=== PATIENT | male | born 1955 | race Caucasian/White ===

== ENCOUNTER 2022-04-03 14:22 | Outpatient (CLI) | payer MEDICARE, BC, SELFPAY ==
--- OUTSIDE RECORDS SUMMARY | 2022-04-03 14:24 | XMS_ITS | Encounter Summary ---
:1955 Author Organization [facility] Address [address] [place] [address] Care Team Providers Name Role Phone Unavailable Primary Care Provider Unavailable Reason for Referral Outpatient (Routine) - Closed Specialty Diagnoses / Procedures Referred By Contact Refer red To Contact Dermatology Tony Nagy M.D . [facility] Region [address] [place] [phone] Referral ID Status Reason Start Date Expiration Date Visits Requ ested Visits Authorized [id number] Closed 01/01/2021 01/01/2022 1 1 Scheduling Instructions Skin cancer screening exam in 3 months a nd recheck dermatitis Reason for Visit Reason Comments Follow-up Outpatient (Routine) - Closed Specialty Diagnoses / Procedures Referred By Contact Refer red To Contact Dermatology Tony Nagy M.D . [address] [phone] Referral ID Status Reason Start Date Expiration Date Visits Requ ested Visits Authorized [id number] Closed 10/01/2020 10/01/2021 1 1 Encounter Details Date Type Department Care Team Description 01/01/2021 Office Visit Department of Tony Nagy, Dermatitis (Primary Dx); Dermatology in [place] Ker[place] [address] [phone] Social History Tobacco Use Types Packs/Day Years Used Date Smoking Tobacco: Former Cigarettes 0 Smokeless Tobacco: Never Comments: 1-2 cigarettes only periodical ly Sex Assigned at Date Recorded Not on file documented as of this encounter Progress Notes Tony Nagy M.D. - 01/01/2021 3:00 PM CDT SUBJECTIVE CHIEF COMPLAINT / REASON FOR VISIT Recheck nummular dermatitis HISTORY OF PRESENT ILLNESS Eran Conner is a pleasant 65 y.o. male who follows up for a recheck nummular dermatitis. The patient was last seen by me in Dermatology clinic on 10/01/20 and at that time a 5 mm punch biopsy was done of the rash and was submitted for 1/2 H&E and 1/2 DIF. Pathology report showed subacute dermatitis and DIF was negative. As per patient report he stated he has had a history of nummular dermatitis that was quite significant at one point in time but he over the last 2. years has been quite mild. ??Previous biopsy showed dermatitis and direct immunofluorescence was negative with no evidence for autoimmune blistering disease. ??He has always denied any new contactant with his skin or any new medications prior to the rash.? On his visit on 11/07/2019, we felt the patient's nummular dermatitis had improved as compared to where it was 2 years ago. ??With regards to treatment, I asked him to stop the betamethasone cream and use only for flares twice daily for 1 week at at time.??I refilled the mometasone ointment to be applied sparingly to involved areas on trunk and extremities once daily for 1-2 weeks, stop for 1-2 weeks, then resume for another week if needed. ??He was also encouraged to do moisturizing with Vanicream and also use Sarna as an anti pruritic nonsteroidal lotion. ??Given that he had improved I did not feel he needed a re-biopsy at that time or patch testing and he was in agreement with this as well. On his most recent visit I asked him to continue with mometasone ointment once daily for 2 weeks at a time. Stop for one week. Resume for another two weeks. For severe flares he may use betamethasone cream once daily for 1 week at a time. However he was notto use the betamethasone except for significant flares and he has not been using it. Additionally, photographs were taken today of the arms, legs, and back. Today he feels his dermatitis is markedly improved with some spots remaining on the lower legs. He is continuing using the mometasone ointment once daily for two weeks at a time. He states he hasn't used the mometasone ointment for about one week. MEDICAL HISTORY History of nummular dermatitis OBJECTIVE PHYSICAL EXAMINATION General: Awake, alert, in no acute distress, and with appropriate affect. Skin: I have examined the scalp, face, neck, chest, abdomen, back, bilateral upper extremities, and bilateral lower extremities. Examination of the lower legs reveals very mild dermatitis with some excoriations. Examination reveals eczematous papules involving the right posterior shoulder and to a lesser extentthe left posterior shoulder. The left extensor arm reveals some mild scaling and dry skin from recent trauma. Examination of the abdomen and flanks reveals a few resolving eczematous papules. Examination today reveals a total of 3 AKs, includin right religion, 1 right ear, 1 left ear antihelix. ASSESSMENT / PLAN #1 Nummular dermatitis, markedly improved I have asked him to continue applying mometasone ointment as spot treatments to involved areas once daily for 1-2 weeks at a time. I have asked him to try to stop the mometasone ointment for two weeks at a time instead of 1 week if possible to avoid thinning of the skin. For itching in the weeks between the mometasone ointment, I recommended he apply Sarna lotion to involved areas 1-2 times daily. For a flare follow up immediately otherwise follow up for a recheck of dermatitis and a full skin check in 2-3 months. #2 Right and left ear, right religion: AK x 3 Given the precancerous nature of this lesion(s), treatment is medically indicated. After discussion of the risks, benefits and alternatives to treatment with cryotherapy, informed consent was obtained.We treated a total of 3 lesion(s) with two 5-10-second freeze-thaw cycles of liquid nitrogen cryother apy. The patient tolerated the procedure well. Aftercare instructions were provided in written and verbal form to the patient. Should any of these lesions recur, the patient should return for biopsy orfurther evaluation. Discussed the risks, benefits, alternatives, and the necessity of other members of the healthcare team participating in the procedure. All questions answered and consent given. PATIENT EDUCATION: Ready to learn. No apparent learning barriers were identified. Learning preferences include listening. Explained diagnosis and treatment plan; patient/guardian of patient expressed understanding of thecontent. By signing my name below, I, Roxana Rosales, attest that this documentation has been prepared underthe direction and in the presence of Tony Nagy M.D. Electronically Signed: julia Reid. ITony M.D., personally performed the services described in this documentation. All medical record entries made by the scribe were at my direction and in my presence. I have reviewed the chart and discharge instructions (if applicable) and agree that the record reflects my personal performance and is accurate and complete. Tony Nagy M.D. documented in this encounter Plan of Treatment Scheduled Referrals Name Type Priority Associated Order Schedule Diagnoses Dermatology office Outpatient Referral Routine Ex pected: visit (clinic) 04/03/2021 (Approximate), Expires: 01/02/2024 documented as of this encounter Visit Diagnoses Diagnosis Dermatitis - Primary Keratosis [facility] documented in this encounter
--- OUTSIDE RECORDS SUMMARY | 2022-04-03 14:24 | XMS_ITS | Encounter Summary ---
:1955 Author Organization [facility] Address [address] [place] [address] Care Team Providers Name Role Phone Unavailable Primary Care Provider Unavailable Reason for Visit Reason Comments Dermatitis Appointment Request (Routine) - Closed Specialty Diagnoses / Procedures Referred By Contact Refer red To Contact Dermatology Referral ID Status Reason Start Date Expiration Date Visits Requ ested Visits Authorized [id number] Closed 08/12/2021 08/12/2022 1 1 Encounter Details Date Type Department Care Team Description 11/11/2021 Office Visit Department of Tony Nagy, Dermatitis (Primary Dermatology in [place] ) [place], [place] [address] [address] [phone] Social History Tobacco Use Types Packs/Day Years Used Date Smoking Tobacco: Former Cigarettes 0 Smokeless Tobacco: Never Comments: 1-2 cigarettes only periodical ly Sex Assigned at Date Recorded Not on file documented as of this encounter Progress Notes Tony Nagy M.D. - 11/11/2021 8:15 AM CDT SUBJECTIVE CHIEF COMPLAINT / REASON FOR VISIT Recheck nummular dermatitis HISTORY OF PRESENT ILLNESS Eran Conner is a pleasant 66 y.o. male who presents for a recheck of nummular dermatitis. The patient was last seen by me in Dermatology clinic on 05/13/21 for a full skin cancer screening. He denies a personal history of skin cancer. His sister has a recent history of melanoma. He uses sunscreen. He denies any new or changing lesions today. ?? Regarding the nummular dermatitis, the patient stated he had??a history of nummular dermatitis that was quite significant at one??point in time but had been mild the past few years. Previous biopsy showed dermatitis and direct immunofluorescence was negative with no evidence for auto-immune blistering disease. He had always denied any new skin contactant or any new medications prior to the rash.? During a previous visit on 11/07/19, we felt the nummular dermatitis had??improved as compared to where it was two years prior. Regarding treatment, I asked him to stop the betamethasone cream and use only for flares twice daily for one week at a time.??I??refilled the??mometasone ointment??to be applied??sparingly to involved areas on trunk and extremities once daily for 1-2??weeks, stop for 1-2 weeksand then resume for another week as needed. He was also encouraged to apply Vanicream moisturizer and Sarna anti-itch lotion.??Subsequently on 10/01/20, a 5- mm punch biopsy was performed which continuedto show subacute dermatitis with negative direct immunofluorescence. ?? During a previous visit on 01/01/21, the patient felt that the dermatitis continued to improve with only some spots remaining on the lower legs. I asked him to continue applying mometasone ointment as spot treatments to involved areas once daily for 1-2 weeks at a time. I asked him to try to stop the mo metasone ointment for two weeks??at a time instead of one week??if possible to avoid thinning of theskin. For itching during the weeks between the mometasone ointment, I recommended applying Sarna lotion??to involved areas 1-2 times daily. ?? During our last visit on 05/13/21, the patient stated the nummular dermatitis involving the back had been stable. He reports having intermittent dermatitis involving the arms, back, abdomen and flanks. When active, he does use mometasone ointment once daily for about three days at a time. ??I asked himto continue applying mometasone ointment as spot treatments to involved areas once daily for one week at a time. For itching, I recommended applying Sarna lotion to involved areas 1-2 times daily. Today the patient states that there is a persistent spot of dermatitis on both calves, and occassoinal spots on the elbow or back. He reports using the mometasone ointment twice daily for the first daywhen flaring, and then applies once daily for 3-5 days and stops. MEDICAL HISTORY Negative for skin cancer FAMILY HISTORY Melanoma in sister Basal cell carcinoma in mother OBJECTIVE PHYSICAL EXAMINATION General: Awake, alert, in no acute distress, and with appropriate affect. Skin: Limited skin exam done today. Examination of trunk and extremities and face done in clinic today. Examination of the left upper arm reveals 2-3 resolving excoriated papules. Examination of the thighs reveals a few excoriated papules. Examination of the left calf reveals a small nummular plaque. There is a slightly smaller patch involving the right calf. Examination today reveals no suspicious lesions for skin cancer. ASSESSMENT / PLAN #1 Trunk and extremities: Nummular and nonspecific dermatitis, improved I asked him to continue applying mometasone ointment as spot treatments to involved areas once dailyfor one week at a time. We discussed potential side effects of topical steroid overuse which includethinning of the skin. For itching, I recommend applying Sarna lotion to involved areas 1-2 times daily. He can also use Vanicream twice daily for moisturizing. Follow up in 6 months for a recheck of the nummular dermatitis as well as a full skin cancer screening. PATIENT EDUCATION: Ready to learn. No apparent learning barriers were identified. Learning preferences include listening. Explained diagnosis and treatment plan; patient/guardian of patient expressed understanding of thecontent. By signing my name below, I, Vonda Mills, attest that this documentation has been prepared under the direction and in the presence of Tony Nagy M.D. Electronically Signed: julia Velasquez. 11/11/2021. 8:13 AM CDT. I, Tony Nagy M.D., personally performed the services described in this documentation. All medical record entries made by the scribe were at my direction and in my presence. I have reviewed the chart and discharge instructions (if applicable) and agree that the record reflects my personal performance and is accurate and complete. Tony Nagy M.D. documented in this encounter Plan of Treatment Not on filedocumented as of this encounter Visit Diagnoses Diagnosis Dermatitis - Primary documented in this encounter
--- OUTSIDE RECORDS SUMMARY | 2022-04-03 14:24 | XMS_ITS | Encounter Summary ---
:1955 Author Organization [facility] Address [address] [place] [address] Care Team Providers Name Role Phone Unavailable Primary Care Provider Unavailable Reason for Visit Reason Comments Med Refill Encounter Details Date Type Department Care Team Description 07/06/2020 Refill Department of Dermatology in [place] M.D. Med [facility] [address] [address] [place], [place] [address] [phone] Social History Tobacco Use Types Packs/Day Years Used Date Smoking Tobacco: Former Cigarettes 0 Smokeless Tobacco: Never Comments: 1-2 cigarettes only periodical ly Sex Assigned at Date Recorded Not on file documented as of this encounter Plan of Treatment Not on filedocumented as of this encounter Visit Diagnoses Not on filedocumented in this encounter
--- OUTSIDE RECORDS SUMMARY | 2022-04-03 14:24 | XMS_ITS | Encounter Summary ---
:1955 Author Organization [facility] Address [address] [place] [address] Care Team Providers Name Role Phone Unavailable Primary Care Provider Unavailable Reason for Visit Reason Comments Follow-up Appointment Request (Routine) - Closed Specialty Diagnoses / Procedures Referred By Contact Refer red To Contact Family Medicine Referral ID Status Reason Start Date Expiration Date Visits Requ ested Visits Authorized [id number] Closed 07/08/2019 07/07/2020 1 1 Encounter Details Date Type Department Care Team Description 11/07/2019 Office Visit Department of Tony Nagy, Dermatitis (Primary Dermatology in [place] ) [place], [place] [address] [phone] [phone] Social History Tobacco Use Types Packs/Day Years Used Date Smoking Tobacco: Former Cigarettes 0 Smokeless Tobacco: Never Comments: 1-2 cigarettes only periodical ly Sex Assigned at Date Recorded Not on file documented as of this encounter Progress Notes Tony Nagy M.D. - 11/07/2019 12:45 PM CDT SUBJECTIVE CHIEF COMPLAINT / REASON FOR VISIT Recheck dermatitis HISTORY OF PRESENT ILLNESS Eran Conner is a pleasant 64 y.o. male who follows up for a recheck of his dermatitis. He was last seen by me in Dermatology Clinic on April 13, 2018. He has a history of nummular dermatitis thatwas quite significant at 1 point in time but he states that over the last 2 years has been quite mild. Previous biopsy showed dermatitis and direct immunofluorescence was negative with no evidence for autoimmune blistering disease. He has always denied any new contactant with his skin or any new medications prior to the rash. We had previously treated him with betamethasone cream twice daily for 1-2 weeks for flares only but otherwise use mometasone ointment once daily for 1-2 weeks at a time and then stop for least 2 weeks for maintenance. He states that he ran out of the mometasone and has been using the clobetasol for any new lesions for few days at a time only. He also uses Sarna lotion twice daily as needed. He has not needed the Benadryl. MEDICAL HISTORY History of nummular dermatitis OBJECTIVE PHYSICAL EXAMINATION General: Awake, alert, in no acute distress, and with appropriate affect. Skin: Examination of his face trunk and extremities was done in clinic today. Examination of his back reveals annular eczematous plaques compatible with his nummular dermatitis. He has a few excoriations involving his arms and legs. He also has some few nummular lesions involving his abdomen. There are no vesicles blisters or pustules. No mucosal involvement. ASSESSMENT / PLAN #1 Trunk greater than extremities: Nummular dermatitis, overall improved The patient's nummular dermatitis has improved as compared to where it was 2 years ago. With regardsto treatment, I have asked him to stop the betamethasone cream. I will refill mometasone ointment which she can apply sparingly to involved areas on trunk and extremities once daily for 1 week, stop for 1-2 weeks, then resume for another week if needed. He was also encouraged to do moisturizing with Vanicream and also use Sarna as an anti pruritic nonsteroidal lotion. Potential side effects with overuse of topical steroids discussed and he understands. Given that he has improved I do not feel he needs a re-biopsy at this time or patch testing and he prefers not to do both either. He will follow up immediately if there is any worsening. Otherwise follow up as needed. All questions answered. PATIENT EDUCATION: Ready to learn. No apparent learning barriers were identified. Learning preferences include listening. Explained diagnosis and treatment plan; patient/guardian of patient expressed understanding of thecontent. documented in this encounter Plan of Treatment Not on filedocumented as of this encounter Visit Diagnoses Diagnosis Dermatitis - Primary documented in this encounter
--- OUTSIDE RECORDS SUMMARY | 2022-04-03 14:24 | XMS_ITS | Encounter Summary ---
:1955 Author Organization [facility] Address [address] [place] [address] Care Team Providers Name Role Phone Unavailable Primary Care Provider Unavailable Encounter Details Date Type Department Care Team Description 10/01/2020 Ancillary Procedure Department of Dermatology Social History Tobacco Use Types Packs/Day Years Used Date Smoking Tobacco: Former Cigarettes 0 Smokeless Tobacco: Never Comments: 1-2 cigarettes only periodical ly Sex Assigned at Date Recorded Not on file documented as of this encounter Plan of Treatment Not on filedocumented as of this encounter Procedures Procedure Name Priority Date/Time Associated Comments Diagnosis DERMATOLOGY IMAGE Routine 10/01/2020 8:55 AM Resu lts for this EXAM CDT procedure are i n the results section. documented in this encounter Results Generalized 500-Dermatology Image Exam (10/01/2020 8:55 AM CDT) Specimen (Source) Anatomical Collection Method Collection Time Re ceived Time Location / / Volume Laterality 10/01/2020 8:53 AM CDT Narrative [facility] - 10/01/2020 8:56 AM CDT This order has been created and auto-finalized to support the import of images acquired without order. The clini trace documentation to support these images can be found on the encounter sharif t produced images. Provider Not In System IMG NON RAD IMAGING PROCEDUR ES Performing Organization Address City/State/ZIP Code Phon e Number [facility] NA documented in this encounter Visit Diagnoses Not on filedocumented in this encounter
--- OUTSIDE RECORDS SUMMARY | 2022-04-03 14:24 | XMS_ITS | Encounter Summary ---
:1955 Author Organization [facility] Address [address] [place] [address] Care Team Providers Name Role Phone Unavailable Primary Care Provider Unavailable Encounter Details Date Type Department Care Team Description 05/13/2021 Orders Only RST PCP [facility] Jessy Blanton M.D. [address] [place], [place] [phone] (Wo rk) Social History Tobacco Use Types Packs/Day Years Used Date Smoking Tobacco: Former Cigarettes 0 Smokeless Tobacco: Never Comments: 1-2 cigarettes only periodical ly Sex Assigned at Date Recorded Not on file documented as of this encounter Plan of Treatment Not on filedocumented as of this encounter Visit Diagnoses Not on filedocumented in this encounter
--- OUTSIDE RECORDS SUMMARY | 2022-04-03 14:24 | XMS_ITS | Encounter Summary ---
:1955 Author Organization [facility] Address [address] [place] [address] Care Team Providers Name Role Phone Unavailable Primary Care Provider Unavailable Reason for Visit Reason Comments Med Refill Encounter Details Date Type Department Care Team Description 05/27/2019 Refill Department of Dermatology in [place] M.D. Med Refill [facility] [address] [address] [place], [place] [phone] Social History Tobacco Use Types Packs/Day Years Used Date Smoking Tobacco: Former Cigarettes 0 Smokeless Tobacco: Never Comments: 1-2 cigarettes only periodical ly Sex Assigned at Date Recorded Not on file documented as of this encounter Miscellaneous Notes Telephone Encounter - Kavitha Tinoco L.PSamirN. - 05/30/2019 4:44 PM CST Patient was notified that the prescription was renewed with no refills as he is overdue for a visit.Patient expressed understanding and will call to schedule a follow up with Dr. Nagy. ANCE EDUCATION COORDINATOR documented in this encounter Plan of Treatment Not on filedocumented as of this encounter Visit Diagnoses Not on filedocumented in this encounter
--- OUTSIDE RECORDS SUMMARY | 2022-04-03 14:24 | XMS_ITS | Encounter Summary ---
:1955 Author Organization [facility] Address [address] [place] [address] Care Team Providers Name Role Phone Unavailable Primary Care Provider Unavailable Reason for Visit Reason Comments Med Refill Encounter Details Date Type Department Care Team Description 07/16/2018 Refill Department of Dermatology in [place] M.D. Med Refill [facility] [place] [address] [place] [phone] [place], [place] [address] [phone] Social History Tobacco Use Types Packs/Day Years Used Date Smoking Tobacco: Former Cigarettes 0 Smokeless Tobacco: Never Comments: 1-2 cigarettes only periodical ly Sex Assigned at Date Recorded Not on file documented as of this encounter Plan of Treatment Not on filedocumented as of this encounter Visit Diagnoses Not on filedocumented in this encounter
--- OUTSIDE RECORDS SUMMARY | 2022-04-03 14:24 | XMS_ITS | Encounter Summary ---
:1955 Author Organization [facility] Address [address] [place] [address] Care Team Providers Name Role Phone Unavailable Primary Care Provider Unavailable Reason for Visit Reason Comments Med Refill Encounter Details Date Type Department Care Team Description 04/25/2020 Refill Department of Dermatology in [place] M.D. Med Refill [facility] [address] [place] [phone] [place], [place] [address] [phone] Social History Tobacco Use Types Packs/Day Years Used Date Smoking Tobacco: Former Cigarettes 0 Smokeless Tobacco: Never Comments: 1-2 cigarettes only periodical ly Sex Assigned at Date Recorded Not on file documented as of this encounter Plan of Treatment Not on filedocumented as of this encounter Visit Diagnoses Not on filedocumented in this encounter
--- OUTSIDE RECORDS SUMMARY | 2022-04-03 14:24 | XMS_ITS | Encounter Summary ---
:1955 Author Organization [facility] Address [address] [place] [address] Care Team Providers Name Role Phone Unavailable Primary Care Provider Unavailable Encounter Details Date Type Department Care Team Description 05/17/2021 Orders Only RST PCP [facility] Jessy Blanton M.D. [address] [place], [place] [phone] (Wo rk) Social History [...]
--- OUTSIDE RECORDS SUMMARY | 2022-04-03 14:24 | XMS_ITS | Encounter Summary ---
:1955 Author Organization [facility] Address [address] [place] [address] Care Team Providers Name Role Phone Unavailable Primary Care Provider Unavailable Reason for Visit Reason Comments Med Refill Encounter Details Date Type Department Care Team Description 04/18/2018 Refill Department of Family Medicine, Tony Veronica M.D. Med Refill [facility], [place] [address] [place] [address] [place], [place] [address] [phone] Social History Tobacco Use Types Packs/Day Years Used Date Smoking Tobacco: Former Cigarettes 0 Smokeless Tobacco: Never Comments: 1-2 cigarettes only periodical ly Sex Assigned at Date Recorded Not on file documented as of this encounter Plan of Treatment Not on filedocumented as of this encounter Visit Diagnoses Not on filedocumented in this encounter
--- OUTSIDE RECORDS SUMMARY | 2022-04-03 14:24 | XMS_ITS | Encounter Summary ---
:1955 Author Organization [facility] Address [address] [place] [address] Care Team Providers Name Role Phone Unavailable Primary Care Provider Unavailable Reason for Referral Specialty Diagnoses / Procedures Referred By Contact Refer red To Contact Jessy Chacko M.D. [facility] [address] [place] [phone] Referral ID Status Reason Start Date Expiration Date Visits Requ ested Visits Authorized ECTION SUPERVISOR Encounter Details Date Type Department Care Team Description 05/13/2021 Orders Only RST PCP [facility] Jessy Chacko M.D. [address] [place] [phone] (Wo rk) Social History Tobacco Use Types Packs/Day Years Used Date Smoking Tobacco: Former Cigarettes 0 Smokeless Tobacco: Never Comments: 1-2 cigarettes only periodical ly Sex Assigned at Date Recorded Not on file documented as of this encounter Plan of Treatment Scheduled Referrals Name Type Priority Associated Order Schedule Diagnoses Covid immunization Outpatient Referral Routine Ex pected: office visit Booster 021 (Approximate), Expires: 05/13/2022 documented as of this encounter Visit Diagnoses Not on filedocumented in this encounter
--- OUTSIDE RECORDS SUMMARY | 2022-04-03 14:24 | XMS_ITS | Encounter Summary ---
:1955 Author Organization [facility] Address [address] [place] [address] Care Team Providers Name Role Phone Unavailable Primary Care Provider Unavailable Reason for Visit Reason Comments Med Refill Encounter Details Date Type Department Care Team Description 06/12/2019 Refill Department of Family Medicine, Tony Veronica M.D. Med Refill [facility], [place] [address] [place], [place] [address] [phone] Social History Tobacco Use Types Packs/Day Years Used Date Smoking Tobacco: Former Cigarettes 0 Smokeless Tobacco: Never Comments: 1-2 cigarettes only periodical ly Sex Assigned at Date Recorded Not on file documented as of this encounter Miscellaneous Notes Telephone Encounter - Tony Nagy M.D. - 06/13/2019 12:32 PM CST I have not prescribed this medication previously, and the patient has not been seen in over one year. He needs to make a follow-up appointment. Thank you. PULLER documented in this encounter Plan of Treatment Not on filedocumented as of this encounter Visit Diagnoses Not on filedocumented in this encounter
--- OUTSIDE RECORDS SUMMARY | 2022-04-03 14:24 | XMS_ITS | Encounter Summary ---
:1955 Author Organization [facility] Address [address] [place] [address] Care Team Providers Name Role Phone Unavailable Primary Care Provider Unavailable Reason for Visit Reason Comments Med Refill Encounter Details Date Type Department Care Team Description 12/16/2021 Refill Department of Dermatology in Tony Bradshaw M.D. Med Refill [facility] [address] [address] [place], [place] [address] [phone] Social History Tobacco Use Types Packs/Day Years Used Date Smoking Tobacco: Former Cigarettes 0 Smokeless Tobacco: Never Comments: 1-2 cigarettes only periodical ly Sex Assigned at Date Recorded Not on file documented as of this encounter Plan of Treatment Not on filedocumented as of this encounter Visit Diagnoses Not on filedocumented in this encounter
--- OUTSIDE RECORDS SUMMARY | 2022-04-03 14:24 | XMS_ITS | Encounter Summary ---
:1955 Author Organization [facility] Address [address] [place] [address] Care Team Providers Name Role Phone Unavailable Primary Care Provider Unavailable Reason for Referral Outpatient (Routine) - Closed Specialty Diagnoses / Procedures Referred By Contact Refer red To Contact Dermatology Tony Nagy M.D . [facility] [address] [place] [phone] Referral ID Status Reason Start Date Expiration Date Visits Requ ested Visits Authorized [id number] Closed 10/01/2020 10/01/2021 1 1 Scheduling Instructions Recheck rash in 2-3 months. 30 minutes Reason for Visit Reason Comments Rash Appointment Request (Routine) - Closed Specialty Diagnoses / Procedures Referred By Contact Refer red To Contact Dermatology Referral ID Status Reason Start Date Expiration Date Visits Requ ested Visits Authorized [id number] Closed 08/13/2020 08/13/2021 1 1 Encounter Details Date Type Department Care Team Description 10/01/2020 Office Visit Department of Tony Nagy, Tumor Skin Uncertain Behavior (Primary Dx); Dermatology in [place]; [place], [place] [address] [facility] Dermatitis [address] [place] [phone] Social History Tobacco Use Types Packs/Day Years Used Date Smoking Tobacco: Former Cigarettes 0 Smokeless Tobacco: Never Comments: 1-2 cigarettes only periodical ly Sex Assigned at Date Recorded Not on file documented as of this encounter Progress Notes Tony Nagy M.D. - 10/01/2020 8:30 AM CDT SUBJECTIVE CHIEF COMPLAINT / REASON FOR VISIT Recheck nummular dermatitis HISTORY OF PRESENT ILLNESS Eran Conner is a pleasant 65 y.o. male who follows up for a recheck of nummular dermatitis. Thepatient was last seen by me in Dermatology clinic on 11/07/2019 and at that time we felt the dermatitis was overall improved and involved his trunk to a greater extent than the extremities. As per patient report he stated he has had a history of nummular dermatitis that was quite significant at one point in time but he over the last 2. years has been quite mild. Previous biopsy showed dermatitis and direct immunofluorescence was negative with no evidence for autoimmune blistering disease. He has always denied any new contactant with his skin or any new medications prior to the rash. On his most recent visit on 11/07/2019, we felt the patient's nummular dermatitis had improved as compared to where it was 2 years ago. With regards to treatment, I asked him to stop the betamethasone cream and use only for flares twice daily for 1 week at at time. I refilled the mometasone ointment to be applied sparingly to involved areas on trunk and extremities once daily for 1-2 weeks, stop for 1-2 weeks, then resume for another week if needed. He was also encouraged to do moisturizing with Vanicream and also use Sarna as an anti pruritic nonsteroidal lotion. Given that he had improved I did not feel he needed a re-biopsy at that time or patch testing and he was in agreement with this as well. Today he states since his previous visit it was well controlled but recently the rash has changed and there are now smaller pin point areas that area extremely itchy and involve the extremities and he is applying mometasone ointment once daily for 2 weeks with improvement but on his week off he has severe itching and the dermatitis worsens. He denies any blisters or new skin contactants. He denies a history of gluten sensitivity. MEDICAL HISTORY History of nummular dermatitis OBJECTIVE PHYSICAL EXAMINATION General: Awake, alert, in no acute distress, and with appropriate affect. Skin: I have examined the scalp, face, neck, chest, abdomen, back, bilateral upper extremities, and bilateral lower extremities. Examination today reveals small erythematous excoriated papules involving the arms bilaterally with some excoriations on the hands and fingers. Web spaces are normal. He does have some non plapable purpura and bruising on the arms. Examination of the thighs and legs reveals some excoriated papules. Examination of lower back and posterior thighs reveals some eczematous excoriated papules and small plaques. ASSESSMENT / PLAN #1 Extremities and lower back: Non specific dermatitis, rule out DH A 5 mm punch biopsy of the rash was done in clinic from the left posterior upper arm and submitted for pathology /2 H& E and / DIF. I will correspond with patient as to the results and if any further treatment is needed.Continue with mometasone ointment once daily for 2 weeks at a time. Stop for one week. Resume for another two weeks. For severe flares he may use betamethasone cream once daily for 1 week at a time. Additionally, photographs were taken today of the arms, legs, and back. CONSENT Discussed the risks, benefits, alternatives, and the necessity of other members of the healthcare team participating in the procedure. All questions answered and consent given. UNIVERSAL PROTOCOL Procedural pause conducted to verify: correct patient identity, procedure to be performed, and as applicable, correct side and site, correct patient position, and availability of implants, special equipment, or special requirements. PROCEDURE INFORMATION Punch biopsy /2 H&E and 2 DIF We explained the potential diagnosis and recommended that we obtain a biopsy. The risks and benefitsof the procedure were discussed, and the patient consented to these procedures. Using 1% lidocaine with epinephrine for local anesthesia, a 5 mm punch biopsy was obtained from the left posterior upper arm. Biopsy submitted to Dermatopathology 2 H&E and / DIF. Biopsy site closed with a top layer 2,4-0 nylon superficial sutures. The skin sutures need to be removed in 10-14 days. Dressing was applied, and wound care instructions were explained. Biopsy results and any further recommendations will be communicated to the patient by letter. Patient given pamphlet [id number]. PATIENT EDUCATION: Ready to learn. No apparent learning barriers were identified. Learning preferences include listening. Explained diagnosis and treatment plan; patient/guardian of patient expressed understanding of thecontent. By signing my name below, I, Roxana Rosales, attest that this documentation has been prepared underthe direction and in the presence of Tony Nagy M.D. Electronically Signed: julia Reid. 10/01/2020 I, Tony Nagy M.D., personally performed the services described in this documentation. All medical record entries made by the scribe were at my direction and in my presence. I have reviewed the chart and discharge instructions (if applicable) and agree that the record reflects my personal performance and is accurate and complete. Tony Nagy M.D. 10/01/2020 documented in this encounter Plan of Treatment Scheduled Referrals Name Type Priority Associated Order Schedule Diagnoses Dermatology office Outpatient Referral Routine Ex pected: visit (clinic) 01/01/2021 (Approximate), Expires: 10/02/2023 documented as of this encounter Procedures Procedure Name Priority Date/Time Associated Comments Diagnosis CUTANEOUS DIRECT IFA, Routine 10/01/2020 9:56 Rash Res ults for this BIOPSY AM CDT procedure are i n the results section. DERMATOPATHOLOGY CONSULT Routine 10/01/2020 9:01 Rash Results for this AM CDT procedure are i n the results section. documented in this encounter Results Cutaneous Direct IFA, Biopsy (10/01/2020 9:56 AM CDT) Component Value Ref Test Analysis Performed Pathologis t Range Method Time At Signature 10/05/2020 PDRM 11:34 AM CDT Report Tony Nagy, 10/05/2020 PDRNick galaviz M.D. 11:34 AM signed by CDT Interpretation A. ??Left posterior upper arm, Skin punch biopsy, 10/05/2020 PDRM Immunofluorescence: 11:34 AM IgG: ??Negative CDT IgM: ??Negative IgA: ?? Negative C3: ?Discontinuous weak granular basement membrane zone Fibrinogen: ??Patchy staining of connective tissue fibers IMPRESSION Negative study for a specific dermatosis (see comment) COMMENT These direct immunofluorescence findings are non-diagnostic and there is no specific evidence for immunobullous disease, lupus erythematosus, or a lichenoid tissue reaction. ??A final definitive diagnosis should be based on correlation of the direct immunofluorescence findings with the clinical presentation, histopathological findings on examination of sections from formalin-fixed, paraffin-embedded tissue and other diagnostic tests. Comment: ----ADDITIONAL INFORMATION---- This test was developed using an analyte specific reagent. Its performance characteristics were determined by [facility] in a manner consistent with CLIA requirements. This test has not bee n cleared or approved by the U.S. Food and Drug Administration. Specimen Anatomical Collection Method Collection Time Receive d Time (Source) Location / / Volume Laterality Varies 10/01/2020 9:56 AM CDT 12:45 PM CDT Narrative This result has an attachment that is no t available. Tony Nagy M.D. LAB PATH DERM ORDERABLES Performing Organization Address City/State/[facility] Code Phon e Number [facility] - [address] [place] [phone] [place] [address] [facility] 200 [facility] Dermatopathology Consult (10/01/2020 9:01 AM CDT) Component Value Ref Test Analysis Performed Pathologis t Range Method Time At Signature 10/05/2020 [facility] 2:35 PM CDT Report Joey Perez, 10/05/2020 [facility] electronically M.D. 2:35 PM signed by CDT Gross Received in formalin labeled with the patient's name, 10/05/2020 [facility] Description: medical record number, and left posterior upper arm is a 2:35 PM 0.5 x 0.2 cm pale ríos portion of skin punch biopsy CDT (half-punch), excised to a depth of 0.3 cm. No discrete lesion is grossly identified on the skin surface. The specimen is submitted en toto in cassette A1. ?? Grossed by AV. Interpetation FINAL DIAGNOSIS 10/05/2020 PDRM A. ??DermPath Consult Wet Tissue; Left posterior upper arm, 2:35 PM Skin punch biopsy: ??Subacute dermatitis with serum crust CDT COMMENT GMS stain is negative for fungal microorganisms. ??Direct immunofluorescence [id number]) is negative. Specimen Anatomical Collection Method Collection Time Receive d Time (Source) Location / / Volume Laterality Tissue 10/01/2020 9:01 AM 9:57 CDT AM CDT Narrative This result has an attachment that is no t available. Tony Nagy M.D. LAB PATH DERM ORDERABLES Performing Organization Address City/State/ZIP Code Phon e Number [facility] - [address] [place], [place] [address] [place] [address] [facility] [address] documented in this encounter Visit Diagnoses Diagnosis Tumor Skin Uncertain Behavior - Primary Rash Dermatitis documented in this encounter
--- OUTSIDE RECORDS SUMMARY | 2022-04-03 14:24 | XMS_ITS | Encounter Summary ---
:1955 Author Organization [facility] Address [address] [place] [address] Care Team Providers Name Role Phone Unavailable Primary Care Provider Unavailable Reason for Visit Reason Comments Med Refill Encounter Details Date Type Department Care Team Description 06/13/2018 Refill Department of Family Medicine, Tony Veronica M.D. Med Refill [facility], [place] [address] [place] [address] [place], [place] [address] [phone] Social History Tobacco Use Types Packs/Day Years Used Date Smoking Tobacco: Former Cigarettes 0 Smokeless Tobacco: Never Comments: 1-2 cigarettes only periodical ly Sex Assigned at Date Recorded Not on file documented as of this encounter Plan of Treatment Not on filedocumented as of this encounter Visit Diagnoses Not on filedocumented in this encounter
--- OUTSIDE RECORDS SUMMARY | 2022-04-03 14:24 | XMS_ITS | Encounter Summary ---
:1955 Author Organization [facility] Address [address] [place] [address] Care Team Providers Name Role Phone Unavailable Primary Care Provider Unavailable Reason for Visit Reason Comments Skin Check Follow-up Outpatient (Routine) - Closed Specialty Diagnoses / Procedures Referred By Contact Refer red To Contact Dermatology Tony Nagy M.D . [facility] Region [address] [place] [phone] Referral ID Status Reason Start Date Expiration Date Visits Requ ested Visits Authorized [id number] Closed 01/01/2021 01/01/2022 1 1 Encounter Details Date Type Department Care Team Description 05/13/2021 Office Visit Department of Tony Nagy, Keratosis Actinic (Primary Dx); Dermatology in [place] [facility]; [address] Dermatitis [address] [place] [phone] Social History Tobacco Use Types Packs/Day Years Used Date Smoking Tobacco: Former Cigarettes 0 Smokeless Tobacco: Never Comments: 1-2 cigarettes only periodical ly Sex Assigned at Date Recorded Not on file documented as of this encounter Progress Notes Tony Nagy M.D. - 05/13/2021 1:45 PM CST SUBJECTIVE CHIEF COMPLAINT / REASON FOR VISIT 1. Full skin cancer screening 2. Recheck nummular dermatitis HISTORY OF PRESENT ILLNESS Eran Conner is a pleasant 66 y.o. male who presents for a full skin cancer screening. The patient was last seen by me in Dermatology clinic on 01/01/21. He denies a personal history of skin cancer or family history for melanoma. He uses sunscreen. He denies any new or changing lesions today. Regarding the nummular dermatitis, the patient stated he had??a history of nummular dermatitis that was quite significant at one??point in time but had been mild the past few years. Previous biopsy showed dermatitis and direct immunofluorescence was negative with no evidence for auto-immune blistering disease. He had always denied any new skin contactant or any new medications prior to the rash.?? During a previous visit on 11/07/19, we [...] show subacute dermatitis with negative direct immunofluorescence. During our last visit on 01/01/21, the patient felt that the dermatitis continued to improve with only some spots remaining on the lower legs. I asked him to continue applying mometasone ointment as spot treatments to involved areas once daily for 1-2 weeks at a time. I asked him to try to stop the mometasone ointment for two weeks at a time instead of one week if possible to avoid thinning of the skin. For itching during the weeks between the mometasone ointment, I recommended applying Sarna lotion to involved areas 1-2 times daily. Today the patient states the nummular dermatitis involving the back has been stable. He reports having intermittent dermatitis involving the arms, back, abdomen and flanks. The rash is much worse during the winter compared to summer. He can go several weeks during the summer without any dermatitis. When active, he does use mometasone ointment once daily for about three days at a time. MEDICAL HISTORY Negative for skin cancer FAMILY HISTORY Negative for melanoma OBJECTIVE PHYSICAL EXAMINATION General: Awake, alert, in no acute distress, and with appropriate affect. Eyes: No scleral injection or icterus. No eyelid abnormalities. Lymph: No lower extremity edema. Skin: I have examined the scalp, face, neck, chest, abdomen, back, bilateral upper extremities, and bilateral lower extremities. Examination today reveals actinic keratoses, including 6 right cheek, 1 right ear antihelix, 2 left cheek, 1 left ear helix and 1 right dorsal hand. Examination of the face, trunk and extremities reveals multiple benign-appearing nevi, lentigines and seborrheic keratoses. Examination of the right upper back (shoulder) reveals a few dermatitic papules, less involving the shoulder. There is no active dermatitis involving the legs. There are some scattered papules involving the left upper back or mid-back. There are no vesicles or pustules. There is some dermatitis involving the right triceps. Examination today reveals no suspicious lesions for skin cancer. ASSESSMENT / PLAN #1 Face and right hand: Actinic keratosis x 11 Given the precancerous nature of this lesion(s), treatment is medically indicated. After discussion of the risks, benefits and alternatives to treatment with cryotherapy, informed consent was obtained.We treated a total of 11 lesion(s) with two 10-second freeze-thaw cycles of liquid nitrogen cryotherapy. The patient tolerated the procedure well. Aftercare instructions were provided in written and verbal form to the patient. Should any of these lesions recur, the patient should return for biopsy or further evaluation. Follow up in 1-2 months for recheck if these areas do not complete resolve. #2 Face, trunk and extremities: Multiple nevi and lentigines The ABCDE criteria for melanoma was reviewed with the patient. None of the patient's nevi reach the clinical threshold for biopsy. I recommend continued sun protection, self-skin examinations, and observation. Should any of the patient's nevi change in size, color, texture, or shape or develop symptoms such as itching or bleeding, I recommend an immediate return visit for reassessment. #3 Face, trunk and extremities: Seborrheic keratosis The benign nature of the skin lesion(s) was discussed with the patient. No treatment is required. I recommend continued observation. Should this lesion change in size, color, texture, or shape or develop symptoms such as itching or bleeding, I recommend an immediate return visit for reassessment. #4 Trunk and extremities: Nummular dermatitis, stable I asked him to continue applying mometasone [...] months for a recheck of the nummular dermatitis. PATIENT EDUCATION: Ready to learn. No apparent learning barriers were identified. Learning preferences include listening. Explained diagnosis and treatment plan; patient/guardian of patient expressed understanding of thecontent. By signing my name below, I, Jeff Becker, attest that this documentation has been prepared under thedirection and in the presence of Tony Nagy M.D. Electronically Signed: julia Linda. 05/13/2021. 2:17 PM AIR CARGO GROUND OPERATIONS SUPERVISOR. I, Tony Nagy M.D., personally performed the services described in this documentation. All medical record entries made by the scribe were at my direction and in my presence. I have reviewed the chart and discharge instructions (if applicable) and agree that the record reflects my personal performance and is accurate and complete. Tony Nagy M.D. CARGO GR[employer] OPERATIONS SUPERVISOR documented in this encounter Plan of Treatment Not on filedocumented as of this encounter Visit Diagnoses Diagnosis Keratosis Actinic - Primary [place] Multiple Dermatitis documented in this encounter
--- OUTSIDE RECORDS SUMMARY | 2022-04-03 14:24 | XMS_ITS | Encounter Summary ---
:1955 Author Organization [facility] Address [address] [place] [address] Care Team Providers Name Role Phone Unavailable Primary Care Provider Unavailable Encounter Details Date Type Department Care Team Description 09/12/2020 Orders Only [facility] PCP [facility] Sa patricia Blanton M.D. [address] [place], [place] [phone] (Wo rk) Social History [...]
--- OUTSIDE RECORDS SUMMARY | 2022-04-03 14:24 | XMS_ITS | Encounter Summary ---
:1955 Author Organization [facility] Address [address] [place] [address] Care Team Providers Name Role Phone Unavailable Primary Care Provider Unavailable Reason for Visit Reason Comments Med Refill Encounter Details Date Type Department Care Team Description 08/24/2018 Refill Department of Dermatology in Tony Bradshaw M.D. Med Refill [facility] [address] [place] [address] [place], [place] [address] [phone] Social History Tobacco Use Types Packs/Day Years Used Date Smoking Tobacco: Former Cigarettes 0 Smokeless Tobacco: Never Comments: 1-2 cigarettes only periodical ly Sex Assigned at Date Recorded Not on file documented as of this encounter Plan of Treatment Not on filedocumented as of this encounter Visit Diagnoses Not on filedocumented in this encounter
--- OUTSIDE RECORDS SUMMARY | 2022-04-03 14:24 | XMS_ITS | Encounter Summary ---
:1955 Author Organization [facility] Address [address] [place] [address] Care Team Providers Name Role Phone Unavailable Primary Care Provider Unavailable Reason for Visit Reason Comments Med Refill Encounter Details Date Type Department Care Team Description 09/04/2021 Refill Department of Dermatology in Tony Bradshaw M.D. Med Refill [facility] [address] [address] [place], [place] [address] [phone] Social History Tobacco Use Types Packs/Day Years Used Date Smoking Tobacco: Former Cigarettes 0 Smokeless Tobacco: Never Comments: 1-2 cigarettes only periodical ly Sex Assigned at Date Recorded Not on file documented as of this encounter Plan of Treatment Not on filedocumented as of this encounter Visit Diagnoses Not on filedocumented in this encounter
--- OUTSIDE RECORDS SUMMARY | 2022-04-03 14:24 | XMS_ITS | Clinical Summary ---
:1955 Author Organization [facility] Address [place] [address] Care Team Providers Name Role Phone Clinic, [facility] Primary Care Provider [phone] Allergies No known active allergies Medications Medication Sig Dispensed Refills Start Date End Date Status citalopram (CELEXA) 0 11/21/2017 Active 20 mg tablet lisinopril (PRINIVIL; 0 11/16/2017 Active ZESTRIL) 20 mg tablet mometasone 0.1% 0 01/26/2019 Act justina (ELOCON 0.1% OINTMENT) 0.1 % ointment omeprazole (PRILOSEC) 0 11/21/2017 Active 20 mg Delayed-Release capsule mometasone 0.1% Apply topically to 0 05/11/2019 Active (ELOCON 0.1% CREAM) rash once daily up 0.1 % cream to 2 weeks as needed for rash Active Problems Problem Noted Date Ulcer of esophagus without bleeding 10/07/2017 Overview: EGD 09/2017 esophageal ulcer, repeat EGD in 3 months Bilateral bunions 09/01/2012 Back pain 09/01/2012 Lipid screening 05/16/2010 LVH (left ventricular hypertrophy) 05/16/2010 Overview: Noted on EKG 01/2009 Prostate cancer screening 01/29/2009 Prediabetes 09/20/2007 Overview: FBS 109 01/11 FBS 113 06/2010 FBS 122 08/2012 Special screening for malignant neoplasms, colon 09/05 Overview: (2007 or 2008) Biopsy of a polyp with no significant tissue on pathology 10 year follow up recommended Unspecified hearing loss 09/06/2007 Overview: Noise exposure Right > left Umbilical hernia without mention of obstruction or tran grene 09/06/2007 Overview: Asymptomatic Unspecified essential hypertension 09/06/2007 Obesity, unspecified Resolved Problems Problem Noted Date Resolved Date Medial meniscus tear 01/24/2009 05/16/2010 Immunizations Name Administration Dates Next Due Influenza, IIV3 (Age >=3 years) 05/28/2007 Td (Age >=7 Years) 10/02/1999 Tdap 01/24/2009 Family History Medical History Relation Name Comments Hypertension Paternal Uncle Relation Name Status Comments Brother 1 Alive Brother 2 (Age 3 months) congenit al heart defect Daughter Shakila Alive 1996 Father (Age 50) suicide Mother Alive Paternal Uncle Sister 1 Alive Sister 2 Alive Sister 3 Alive Son Gui Alive 1994 Social History Tobacco Use Types Packs/Day Years Used Date Never Smoker Smokeless Tobacco: Never Used Tobacco Cessation: Counseling Given: Yes Alcohol Use Standard Drinks/Week Comments Yes 0 (1 standard drink = 0.6 oz pure alcoho l) Sex Assigned at Date Recorded Not on file Obstetrics History Last Filed Vital Signs Vital Sign Reading Time Taken Comments Blood Pressure 124/60 05/17/2019 10:06 AM FAMILY NURSE Pulse 76 05/17/2019 10:06 AM FAMILY NURSE Temperature - - Respiratory Rate - - Oxygen Saturation - - Inhaled Oxygen Concentration - - Weight 90.7 kg (200 lb) 05/17/2019 10:06 AM FAMILY NURSE Height 172.1 cm (5' 7.75) 05/17/2019 10:06 AM FAMILY NURSE Body Mass Index 30.63 05/17/2019 10:06 AM FAMILY NURSE Plan of Treatment Health Maintenance Due Date Last Done Comments COVID-19 vaccine series (#1) 1955 Depression screening for age 12+ 1969 Hepatitis C screening for age 18-79 1975 Zoster (shingles) series for age 50+ (1 of 2007 2) Lipids for age 45-75 06/26/2015 06/26/2010 Colonoscopy through age 75 10/03/2017 10/04/2007 Tetanus booster 01/24/2019 01/24/2009, 10/02/1999 BMI (ht and wt on same day) for age 18+ 05/17/2020 05/17/20 19, 05/11/2019 Influenza for age 65+ 2022 05/28/2007 Pneumococcal series for age 65+ (1 - PCV) 2022 Tdap Completed 01/24/2009 Results Not on filefrom Last 3 Months Insurance Payer Benefit Plan / Subscriber ID Effective Dates Phone Addre ss Type Group BLUE CROSS BLUE CROSS OF [id number] 2018-Present [address] [address] [place] [address] [id number] [place] [phone] DENIS Occ [phone] ATTN DEDRICK AUDIOGRAMS [facility] (Work) [place] [address] [place] [address] Care Teams Bobbin Disker Relationship Specialty Start Date End Date Clinic, [facility] PCP - General 06/27/[address] MONET Ansari [id number]
--- OUTSIDE RECORDS SUMMARY | 2022-04-03 14:24 | XMS_ITS | Clinical Summary ---
:1955 Author Organization [facility] Address [address] [place] [address] Care Team Providers Name Role Phone Unavailable Primary Care Provider Unavailable Source Comments Patient records contain information from all sites at [facility]. For routine questions regarding patient records, call [phone] during business hours, M-F 8:00 AM - 5:00 PM Central Time. Record requests for emergency care only can be directed to [phone] at any time.[facility] Allergies No known active allergies Medications Medication Sig Dispensed Refills Start Date End Date Status citalopram (CeleXA) 0 11/21/2017 Active 20 mg tablet lisinopril 0 11/16/2017 Active (PRINIVIL,ZESTRIL) 20 mg tablet omeprazole 0 11/21/2017 Active (PriLOSEC) 20 mg capsule predniSONE 0 08/25/2017 Active (DELTASONE) 10 mg tablet famotidine (PEPCID) Take 1 mg by mouth 0 01/24/2009 Active 20 mg tablet as needed. mometasone (ELOCON) Apply 1 application 45 g 0 11/24/2017 Active 0.1 % cream topically daily. Apply sparingly to rash on trunk and extremities daily for 1-2 weeks at a time. mometasone (ELOCON) Apply sparingly to 45 g 1 03/16/2018 Active 0.1 % cream involved areas of rash on trunk and extremities once daily for 2 weeks at a time. BANOPHEN 25 mg TAKE ONE CAPSULE BY 180 capsule 1 06/14/2018 Active capsule MOUTH TWICE A DAY NEEDED FOR ITCHING Additional Information Patient not taking. Reported on 11/11/2021 betamethasone dipropionate APPLY SPARINGLY TO INVOLVED 45 g 1 07/16/2018 Active (DIPROLENE) 0.05 % cream AREAS ON TRUNK AND EXTREMITIES TWICE DAILY FOR 2 WEEKS, THEN STOP Additional Information Patient not taking. Reported on 11/11/2021 mometasone (ELOCON) 0.1 % APPLY SPARINGLY TO INVOLVED 45 g 0 05/30/2019 Active ointment AREAS OF DERMATITIS ONCE DAILY FOR 2 WEEKS AT A TIME, THEN STOP hydrOXYzine (VISTARIL) 25 mg Take 25 mg by mouth daily as 0 07/27/2020 Active capsule needed. sildenafiL (VIAGRA) 100 mg Take 100 mg by mouth as 0 08/27/2020 Active tablet needed. mometasone (ELOCON) 0.1 % APPLY SPARINGLY TO INVOLVED 45 g 1 01/01/2021 Active ointment RASH ON TRUNK AND EXTREMITIES ONCE DAILY FOR 1 WEEK. STOP FOR 1 OR 2 WEEKS, RESUME IF NEEDED mometasone (ELOCON) 0.1 % Apply sparingly to rash on 45 g 1 05/13/2021 Active ointment trunk and extremities once daily for 1 week then stop for at least 1 week before resuming if needed. mometasone (ELOCON) 0.1 % Apply sparingly to rash on 45 g 1 09/06/2021 Active ointment trunk and extremities once daily for 1 week, then stop for at least 1 week, resume if needed. mometasone (ELOCON) 0.1 % APPLY TOPICALLY SPARINGLY TO 45 g 1 12/17/2021 Active ointment RASH ON TRUNK AND EXTREMITIES ONCE DAILY FOR 1 WEEK, THEN STOP FOR AT LEAST 1 WEEK, RESUME IF NEEDED Family History Medical History Relation Name Comments Basal cell carcinoma Mother Melanoma Sister Relation Name Status Comments Mother Sister Social History Tobacco Use Types Packs/Day Years Used Date Smoking Tobacco: Former Cigarettes 0 Smokeless Tobacco: Never Comments: 1-2 cigarettes only periodical ly Sex Assigned at Date Recorded Not on file Plan of Treatment Health Maintenance Due Date Last Done Comments Abdominal Aortic Aneurysm (AAA) [address] Colonography 1955 Cologuard 1955 Colonoscopy 1955 Colorectal Cancer Screening 1955 Creatinine Level 1955 FIT 1955 Fasting Glucose for Diabetes 1955 Screening HIV Screening 1955 Hepatitis C Screening 1955 Potassium Level 1955 Sodium Level 1955 Depression Screening (Annual 07/06/2021 PHQ-2) COVID-19 Vaccine (4 - Booster for 07/29/2021 06/03/2021, , Moderna series) 09/21/2020 Fall Risk Screen (Annual) 2022 Pneumococcal vaccine (65+ years) 2022 (1 - PCV) Influenza Vaccine (#1) 2022 03/21/2021, 03/26/2020, 05/28/2007, Additional history exists DTaP,Tdap,and Td Vaccines (3 - Td 08/16/2028 08/16/2018, or Tdap) Zoster Vaccines Completed 06/27/2021, 03/25/2021 Insurance Payer Benefit Plan / Subscriber ID Effective Dates Phone Addre ss Type Group BLUE CROSS ANTHEM BLUE [id number] 2018-Azul [phone] [address] [id number] PPO [facility] ACCESS t [address] [place] [address]
--- OUTSIDE RECORDS SUMMARY | 2022-04-03 14:25 | XMS_ITS | Encounter Summary ---
:1955 Author Organization [facility] Address [address] [place] [address] Care Team Providers Name Role Phone Unavailable Primary Care Provider Unavailable Reason for Visit Reason Comments Dermatitis Follow up Appointment Request (Routine) - Closed Specialty Diagnoses / Procedures Referred By Contact Refer red To Contact Dermatology Referral ID Status Reason Start Date Expiration Date Visits Requ ested Visits Authorized [id number] Closed 03/16/2018 03/16/2019 1 Encounter Details Date Type Department Care Team Description 04/13/2018 Office Visit Department of Tony Nagy, Dermatitis (Primary Dermatology in [facility]) [place], [place] [address] [phone] [phone] Social History Tobacco Use Types Packs/Day Years Used Date Smoking Tobacco: Former Cigarettes 0 Smokeless Tobacco: Never Comments: 1-2 cigarettes only periodical ly Sex Assigned at Date Recorded Not on file documented as of this encounter Progress Notes Tony Nagy M.D. - 04/13/2018 8:45 AM CDT CHIEF COMPLAINT Dermatitis involving trunk and extremities HISTORY OF THE PRESENT ILLNESS Eran Conner is a pleasant 63 y.o. male who follows up for dermatitis involving his trunk and extremities. Please refer to previous notes with most recent Dermatology note from February 15, 2018. Previous biopsy showed dermatitis and DIF biopsy was negative for any autoimmune blistering disease donelast spring 2017. He has always denied any new contactant with his skin or any new medications priorto the rash and there are no household contacts with a rash. He ran out of both the betamethasone cream which she uses for flares for brief periods and the mometasone cream and the last few weeks. He is using Sarna lotion twice daily which does help with the itch and Benadryl 25 mg twice per day once in the morning and at bedtime which also helps with the itch and does not result in him being drowsy. PAST MEDICAL HISTORY No previous history for dermatitis, atypia or psoriasis. PHYSICAL EXAM General: Awake, alert, in no acute distress, and with appropriate affect. Skin: Full skin exam was done today including examination of his scalp, face, neck, chest, abdomen, back, arms and legs, hands, buttocks and groin area. Examination of his skin reveals multiple annulareczematous plaques involving his back and legs and to a lesser extent his abdomen and arms. He does not have any involvement of his face or neck. There are no vesicles blisters pustules. Web spaces arenormal. There is no lymphadenopathy on examination of his head and neck axilla or inguinal areas andthere is no hepatosplenomegaly. IMPRESSION AND PLAN Back in legs greater than arms and abdomen: Dermatitis, possible nummular dermatitis I feel that in some areas his dermatitis is nonspecific but in other areas it looks good for nummular dermatitis. We discussed potentially doing a repeat biopsy today for routine pathology and direct immunofluorescence given that the initial biopsy was taken in October 2017 knees had some improvement but no resolution. He defers a biopsy at this time given that [place]. We also discussed the possibility of doing patch testing to see if there are any environmental factors but given that he has active dermatitis involving his back and is busy on the farm as well as the fact that patch testing is done in [place] over 1 week., we deferred doing so at this time as well. I haverefilled his betamethasone cream which she will only use at times of flare to active dermatitis twice daily for 2 weeks and then stop. He will wait at least a few days and then will use mometasone ointment to involved areas of active dermatitis once daily for up to 2 weeks at a time, stop for at least1 week, then resume for another 2 weeks only if needed. Potential side effects with overuse of topical steroids discussed and he understands. Otherwise if there is no active dermatitis he will only usethe Sarna lotion twice daily as needed for itching and he may continue Benadryl 25 mg in the morningand at bedtime as needed for itching and he has not had any problems with drowsiness. He will followup with me in approximately 4 months in August 2018 after returning from [place] and last there pedro flare he will come back sooner. All questions answered. PATIENT EDUCATION Ready to learn. No apparent learning barriers were identified. Learning preferences include listening. Explained diagnosis and treatment plan; patient/guardian of patient expressed understanding of thecontent. documented in this encounter Plan of Treatment Not on filedocumented as of this encounter Visit Diagnoses Diagnosis Dermatitis - Primary documented in this encounter
--- OUTSIDE RECORDS SUMMARY | 2022-04-03 14:25 | XMS_ITS | Encounter Summary ---
:1955 Author Organization [facility] Address [address] [place] [address] Care Team Providers Name Role Phone Unavailable Primary Care Provider Unavailable Reason for Visit Reason Comments Rash Appointment Request (Routine) - Closed Specialty Diagnoses / Procedures Referred By Contact Refer red To Contact Family Medicine Referral ID Status Reason Start Date Expiration Date Visits Requ ested Visits Authorized [id number] Closed 02/02/2018 02/02/2019 1 Encounter Details Date Type Department Care Team Description 02/15/2018 Office Visit Department of Tony Nagy, Dermatitis (Primary Dermatology in [place] [facility] ) [place], [place] [address] [phone] [phone] Social History Tobacco Use Types Packs/Day Years Used Date Smoking Tobacco: Former Cigarettes 0 Smokeless Tobacco: Never Comments: 1-2 cigarettes only periodical ly Sex Assigned at Date Recorded Not on file documented as of this encounter Progress Notes Tony Nagy M.D. - 02/15/2018 3:15 PM CDT CHIEF COMPLAINT Dermatitis involving the trunk and extremities HISTORY OF THE PRESENT ILLNESS Eran Conner is a pleasant 62 y.o. male who follows up for dermatitis involving the trunk and extremities. He was last seen by me on 12/25/17. At that time he was prescribed mometasone for maintenance and still had a refill of betamethasone available. He had been using mometasone which he feels waskeeping the rash the same but not improving the dermatitis. He does pick at the areas involved because they itch. He denies any blisters associated with his dermatitis. On 02/05/18 he refilled his betamethasone. He used the betamethasone daily for about 8 days and is now out. He has not applied any of the betamethasone in about four days now. He is still taking Atarax 25 mg twice daily. He denies any drowsiness when taking the Atarax. He denies any new contacts prior to the start of his dermatitis. Previous workup included biopsy which showed dermatitis and DIF testing which was negative. PAST MEDICAL HISTORY No previous history for dermatitis or any history of psoriasis. PHYSICAL EXAM General: Awake, alert, in no acute distress, and with appropriate affect. Lymph: No lymphadenopathy involving the head, neck, axilla or inguinal areas. No hepatosplenomegaly Skin: Examination of the arms and hands reveals scattered excoriations with some mild dermatitis involving the upper arms. Examination of the back reveals a few small eczematous annular plaques with some excoriations. Examination of the lower extremities reveals scabs and excoriations. Examination of the upper thigh reveals small eczematous plaques. No blisters. No vesicles. Examination of the webs of the fingers are normal. Examination of the buttock reveals no dermatitis. IMPRESSION AND PLAN #1 Trunk and extremities: Dermatitis and excoriations Will refill betamethasone. He should apply the betamethasone twice a day for 1-2 weeks and then stop. He should wait a few days to 1 week after finishing the Betamethasone and then he can restart the mometasone cream daily for 2 weeks at a time. He may apply Sarna lotion twice a day for itching. I have given him written instructions on how to apply the Sarna lotion. If his dermatitis does not improveover the next few months, I may refer him to [place] for patch testing and explained to the patient what patch testing would involve. He asked for refill of his Atarax that he had at home and had runout. When I went in to refill it, there is the potential for interaction with his other medications and subsequently I did not refill it. Instead, I have prescribed Benadryl one 25 mg capsule twice daily instead. I asked my nurse Bernice or Mckayla to get a hold of him to let him know the change. PATIENT EDUCATION Ready to learn. No apparent learning barriers were identified. Learning preferences include listening. Explained diagnosis and treatment plan; patient/guardian of patient expressed understanding of thecontent. By signing my name below, I, Harish Villalpando, attest that this documentation has been prepared under the direction and in the presence of Tony Nagy M.D.. Electronically Signed: julia Donovan. 02/15/2018. 3:23 PM . I, Tony Nagy M.D., personally performed the services described in this documentation. All medical record entries made by the scribe were at my direction and in my presence. I have reviewed the chart and discharge instructions (if applicable) and agree that the record reflects my personal performance and is accurate and complete. Tony Nagy M.D. . 02/15/2018. 4:41 PM. documented in this encounter Plan of Treatment Not on filedocumented as of this encounter Visit Diagnoses Diagnosis Dermatitis - Primary documented in this encounter
--- OUTSIDE RECORDS SUMMARY | 2022-04-03 14:25 | XMS_ITS | Encounter Summary ---
:1955 Author Organization [facility] Address [address] [place] [address] Care Team Providers Name Role Phone Unavailable Primary Care Provider Unavailable Encounter Details Date Type Department Care Team Description 01/28/2018 Clinical Communication Department of Family [facility], Pcp Medicine, [facility], in [address] [address] Social History Tobacco Use Types Packs/Day Years Used Date Smoking Tobacco: Former Cigarettes 0 Smokeless Tobacco: Never Comments: 1-2 cigarettes only periodical ly Sex Assigned at Date Recorded Not on file documented as of this encounter Miscellaneous Notes Telephone Encounter - Tony Nagy M.D. - 02/02/2018 4:06 PM CDT Wander Block, please add him on at 3:15 p.m. here in [place] on ThursdayFebruary 15. Thanks Telephone Encounter - Mckayla English R.N. - 02/02/2018 1:06 PM CDT Spoke with patient who is out of his Betamethasone Cream and is requesting another refill. States hehas been using it twice daily for up to 2 weeks at a time with some relief, but whenever he stops using the Betamethasone Cream the rash returns. Patient was advised that Dr. Nagy will be asked for another refill on this medication to be sent to [facility] in [place], but that we will also need to get him scheduled to come back and see Dr. Nagy for a re-evaluation of his rash. Patient prefers to be seen in [place] for this initial follow up, but is open to going to [place] for any additional follow up or testing as needed. Telephone Encounter - Luzma Howard R.N. - 02/01/2018 2:20 PM CDT Per communication with Dr. Nagy, on 01/05/18 he suggested, Please let him know that I will refill his betamethasone cream that he can apply sparingly to active dermatitis on trunk and extremities twice daily for only 2 weeks at a time. ??If he does not improve, he will need to make a follow-up appointment. Telephone Encounter - Sapphire Nair - 02/01/2018 11:19 AM CDT Pt called stating that the rash has come back and is causing him discomfort. He would like to know if he can be prescribed the stronger creme that he had before or if he can come in [facility] to be seen. Hesaid the stronger creme seems to help a lot but does not cure the rash. Please contact him on his cell phone [phone]. Telephone Encounter - Sapphire Nair - 01/28/2018 10:46 AM CDT Pt saw Dr. Nagy on 11/24 for a F/U for a rash. Dr. Nagy prescribed him a different creme because the rash had improved. The pt felt the creme was less effective . He said his arm is itchy and bleeds if he scratches. The pt would just like to know at this point, if he should schedule with Dr. Nagy or if Dr. Nagy can prescribe him something with out being seen. documented in this encounter Plan of Treatment Not on filedocumented as of this encounter Visit Diagnoses Not on filedocumented in this encounter
--- OUTSIDE RECORDS SUMMARY | 2022-04-03 14:25 | XMS_ITS | Encounter Summary ---
:1955 Author Organization [facility] Address [address] [place] [address] Care Team Providers Name Role Phone Unavailable Primary Care Provider Unavailable Encounter Details Date Type Department Care Team Description 03/16/2018 Orders Only Department of Dermatology in Tony Bradshaw M.D. [place], [place] [address] [facility] [address] [place] [phone] (Wo rk) Social History Tobacco Use Types Packs/Day Years Used Date Smoking Tobacco: Former Cigarettes 0 Smokeless Tobacco: Never Comments: 1-2 cigarettes only periodical ly Sex Assigned at Date Recorded Not on file documented as of this encounter Plan of Treatment Not on filedocumented as of this encounter Visit Diagnoses Not on filedocumented in this encounter
--- OUTSIDE RECORDS SUMMARY | 2022-04-03 14:25 | XMS_ITS | Encounter Summary ---
:1955 Author Organization [facility] Address [address] [place] [address] Care Team Providers Name Role Phone Unavailable Primary Care Provider Unavailable Encounter Details Date Type Department Care Team Description 03/15/2018 Clinical Communication Department of [facility] Mile Nagy, [facility], [facility], in [address] [address] [place], [place] [phone] (Work) [phone] Social History Tobacco Use Types Packs/Day Years Used Date Smoking Tobacco: Former Cigarettes 0 Smokeless Tobacco: Never Comments: 1-2 cigarettes only periodical ly Sex Assigned at Date Recorded Not on file documented as of this encounter Miscellaneous Notes Telephone Encounter - Mckayla English R.N. - 03/16/2018 5:38 PM CDT Called patient back to confirm Betamethasone and Benadryl prescriptions were [facility] and instructed him that Dr. Nagy wants him to use the Mometasone cream first so that he has a 2 week break before starting the Betamethasone cream again and her verbalized his understandingof those instructions. He was also informed that Dr. Nagy would like to see him back in clinic [facility] on 04/13/18 at 0830 am and will likely refer him to [place] for Patch Testing at that time. Patient was very happy about the plan and is agreeable to the appointment April 13. Telephone Encounter - Mckayla English R.N. - 03/16/2018 1:25 PM CDT Called patient to let him know Dr. Nagy has sent a new prescription of the Mometasone cream to his [facility]. Patient reports he finished his Betamethasone 0.05% cream about 3 days ago and is already having having his symptoms reoccur and states he also needs a refill of his Betamethasone 0.05% cream and his Benadryl. In talking with patient it was discovered he has only been using the Benadryl once per day so he will begin now using it twice daily. Discussed with Dr. Nagy and he isonly agreeable to one refill of the Betamethasone in a 30gm tube and would like to see the patient back on Apr 13 for reassessment of his condition as he may possibly need patch testing ordered in [place]. Telephone Encounter - Deepthi Carpenter - 03/15/2018 2:58 PM CDT Patient called stating that Dr. Nagy had prescribed a 5% cream and told patient that he would prescribe a 1% cream for him to use in between so he would stay on top of it. Please call patient to confirm at [phone]. Send to [facility]. documented in this encounter Plan of Treatment Not on filedocumented as of this encounter Visit Diagnoses Not on filedocumented in this encounter
--- OUTSIDE RECORDS SUMMARY | 2022-04-03 14:25 | XMS_ITS | Encounter Summary ---
:1955 Author Organization [facility] Address [address] [place] [address] Care Team Providers Name Role Phone Unavailable Primary Care Provider Unavailable Encounter Details Date Type Department Care Team Description 12/29/2017 Clinical Communication Department of Tony Nagy, Dermatology in [place], [place] [address] [facility] [address] [place] [phone] Social History Tobacco Use Types Packs/Day Years Used Date Smoking Tobacco: Former Cigarettes 0 Smokeless Tobacco: Never Comments: 1-2 cigarettes only periodical ly Sex Assigned at Date Recorded Not on file documented as of this encounter Miscellaneous Notes Telephone Encounter - Mckayla English R.N. - 12/29/2017 5:57 PM CDT Spoke with Dr. Nagy who recommends if patient is having increased symptoms to resume the use of the Betamethasone Dipropionate Cream twice daily for one week, take a week off and then repeat and then go back to the use of the Mometasone Cream as previously prescribed. If patient does not improve after this regime he should schedule a follow up appointment with Dr. Nagy. Nurse called and spoke with patient who agrees to the above plan. He states he had recently stopped his Claritin as well and wondered about restarting it. Dr. Nagy's note dated 11/24/17 was reviewed and Nurse did suggest perDr. Nagy's recommendations at that time that he start using Hydroxyzine daily at bedtime for itching. Patient thinks he has a refill on this medication, but if he runs into issues he will call the [place] Nurse Triage line on 12/30/17 as ask to have this medication refilled for him as Dr. Nagy will be working in [place] the rest of the week. Telephone Encounter - Dariana Ash - 12/29/2017 12:00 PM CDT Eran saw Dr. Carrasquillo on 11/24 and was prescribed a steroid cream, but it did not help. Eran is wondering if Dr. Carrasquillo can prescribe a different option. Please call Eran at [phone]. documented in this encounter Plan of Treatment Not on filedocumented as of this encounter Visit Diagnoses Not on filedocumented in this encounter
--- OUTSIDE RECORDS SUMMARY | 2022-04-03 14:25 | XMS_ITS | Encounter Summary ---
:1955 Author Organization [facility] Address [address] [place] [address] Care Team Providers Name Role Phone Unavailable Primary Care Provider Unavailable Reason for Visit Appointment Request (Routine) - Closed Specialty Diagnoses / Procedures Referred By Contact Refer red To Contact Dermatology Referral ID Status Reason Start Date Expiration Date Visits Requ ested Visits Authorized [id number] Closed 11/04/2017 05/03/2018 1 1 Encounter Details Date Type Department Care Team Description 11/24/2017 Office Visit Department of Tony Nagy, Dermatitis (Primary Dermatology in [place] ) [place], [place] [address] [phone] [phone] Social History Tobacco Use Types Packs/Day Years Used Date Smoking Tobacco: Former Cigarettes 0 Smokeless Tobacco: Never Comments: 1-2 cigarettes only periodical ly Sex Assigned at Date Recorded Not on file documented as of this encounter Progress Notes Tony Nagy M.D. - 11/24/2017 8:00 AM CDT CHIEF COMPLAINT Recheck dermatitis HISTORY OF THE PRESENT ILLNESS Eran Conner is a pleasant 62 y.o. male who follows up for a recheck of his dermatitis. Patient was seen in dermatology in [place] for the first time by me on October 13, 2017. At that time he presented with a generalized skin rash that had been present for approximately 6 months involving his trunk and extremities. It was pruritic with a 4/10 on average. He was treated by his primary care physician with Prednisone on three different occasions tapered from 40 mg or 20 mg and on one occasion 10 mg but the rash would always reoccur. He denied any prior history for dermatitis, or any new medications or any new products coming in contact with his skin. He had used triamcinolone cream previously aswell as Zyrtec and Claritin at different times. There were no household contacts with a rash. He denied fever, night sweats, weight loss or loss of appetite. He had blood work in a [facility] with his PCP within the last few months and was told everything was fine. At that time I felt the rash represented non-specific dermatitis and a skin biopsy was taken from his left upper arm and was read out as subacute dermatitis and DIF biopsy was negative. I prescribed at that time betamethasone cream which he applied for two weeks with resolution of the dermatitis so he stopped it for approximately 3 weeks and now rash is starting to reoccur and he is using it again. He is using hydroxyzine 25 mg daily for the last week. PAST MEDICAL HISTORY No history for dermatitis or psoriasis. PHYSICAL EXAM General: Awake, alert, in no acute distress, and with appropriate affect. Skin: I have examined the scalp, face, neck, chest, abdomen, back, bilateral upper extremities, and bilateral lower extremities Examination of his arms today reveals mild dermatitis involving the extensor arms, upper arms and shoulders with mild involvement of the upper back. Minimal dermatitis involving right lower leg. Examination of the buttocks reveals no dermatitis. Examination of the head and face revealed no dermatitis.No evidence for vesicles, blisters or pustules. Lymph: No lymphadenopathy head, neck, inguinal or axilla. No hepatosplenomegaly. IMPRESSION AND PLAN Trunk and extremities: Dermatitis, markedly improved He will be prescribed mometasone once daily to the involved area on the trunk and extremities for 1-2 weeks, stop, then resume only as needed. He was instructed to only apply this sparingly and only tothe involved areas. He is not to use it for more than 2 weeks at a time. Patient advised of the risks of overuse of steroid cream and understands. He may use hydroxyzine for pruritis once daily at bedtime. Explained to the patient the risks of drowsiness when taking hydroxyzine. 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 He expressed understanding. He will use the mometasone as maintenance therapy and can use the betamethasone in the future for flares. Recommend follow up as needed. If he flares I do want to see him back. May consider patch testing in the future if dermatitis becomes a chronic problem. By signing my name below, I, Julien Armenta, attest that this documentation has been prepared underthe direction and in the presence of Tony Nagy M.D.. Electronically Signed: julia Hernandez. 11/24/2017. 7:48 AM . I, Tony Nagy M.D., personally performed the services described in this documentation. All medical record entries made by the scribe were at my direction and in my presence. I have reviewed the chart and discharge instructions (if applicable) and agree that the record reflects my personal performance and is accurate and complete. Tony Nagy M.D. . 11/24/2017. 8:48 AM. documented in this encounter Plan of Treatment Not on filedocumented as of this encounter Visit Diagnoses Diagnosis Dermatitis - Primary documented in this encounter
--- OUTSIDE RECORDS SUMMARY | 2022-04-03 14:25 | XMS_ITS | Encounter Summary ---
:1955 Author Organization [facility] Address [address] [place] [address] Care Team Providers Name Role Phone Unavailable Primary Care Provider Unavailable Encounter Details Date Type Department Care Team Description 01/05/2018 Orders Only Department of Dermatology in Tony Bradshaw M.D. [place], [place] [address] [facility] [address] [place] [phone] [phone] (Wo rk) Social History Tobacco Use Types Packs/Day Years Used Date Smoking Tobacco: Former Cigarettes 0 Smokeless Tobacco: Never Comments: 1-2 cigarettes only periodical ly Sex Assigned at Date Recorded Not on file documented as of this encounter Plan of Treatment Not on filedocumented as of this encounter Visit Diagnoses Not on filedocumented in this encounter
--- OUTSIDE RECORDS SUMMARY | 2022-04-03 14:25 | XMS_ITS | Encounter Summary ---
:1955 Author Organization [facility] Address [address] [place] [address] Care Team Providers Name Role Phone Unavailable Primary Care Provider Unavailable Encounter Details Date Type Department Care Team Description 01/01/2018 Clinical Communication Department of Tony Nagy, Dermatology in [place] [address] [phone] [phone] Social History Tobacco Use Types Packs/Day Years Used Date Smoking Tobacco: Former Cigarettes 0 Smokeless Tobacco: Never Comments: 1-2 cigarettes only periodical ly Sex Assigned at Date Recorded Not on file documented as of this encounter Miscellaneous Notes Telephone Encounter - Brigid Akbar - 01/01/2018 3:35 PM CDT Patient was calling wondering the status of the prescription for the 5% steroid cream. Please reach out to the patient at [phone]. documented in this encounter Plan of Treatment Not on filedocumented as of this encounter Visit Diagnoses Not on filedocumented in this encounter
--- OUTSIDE RECORDS SUMMARY | 2022-04-03 14:25 | XMS_ITS | Encounter Summary ---
:1955 Author Organization [facility] Address [address] [place] [address] Care Team Providers Name Role Phone Unavailable Primary Care Provider Unavailable Reason for Visit Reason Comments Med Refill Encounter Details Date Type Department Care Team Description 01/27/2018 Refill Department of Dermatology in Tony Bradshaw M.D. Med Refill [place], [place] [address] [facility] [address] [place] [address] [place] [address] [phone] Social History Tobacco Use Types Packs/Day Years Used Date Smoking Tobacco: Former Cigarettes 0 Smokeless Tobacco: Never Comments: 1-2 cigarettes only periodical ly Sex Assigned at Date Recorded Not on file documented as of this encounter Miscellaneous Notes Telephone Encounter - Odalis Rosa - 01/27/2018 3:46 PM CDT Received additional request for refill - It appears in previous communication that nursing was unable to reach patient - I am not sure which department in [place] would be able to address this or if you can address it? Please advise, Thank you documented in this encounter Plan of Treatment Not on filedocumented as of this encounter Visit Diagnoses Not on filedocumented in this encounter
--- OUTSIDE RECORDS SUMMARY | 2022-04-03 14:25 | XMS_ITS | Encounter Summary ---
:1955 Author Organization [facility] Address [address] [place] [address] Care Team Providers Name Role Phone Unavailable Primary Care Provider Unavailable Encounter Details Date Type Department Care Team Description 02/15/2018 Clinical Communication Department of Humza Siddiqi, [place], [place] [address] [phone] Social History Tobacco Use Types Packs/Day Years Used Date Smoking Tobacco: Former Cigarettes 0 Smokeless Tobacco: Never Comments: 1-2 cigarettes only periodical ly Sex Assigned at Date Recorded Not on file documented as of this encounter Miscellaneous Notes Telephone Encounter - Mckayla English R.N. - 02/16/2018 9:37 AM CDT Attempted call again to patient with no answer at [phone]. Call placed to home number of [phone] and was able to reach patients Carlene Conner who states patient did pickle maker the new prescription for Benadryl last night. Explained to her why patient should no longer take the Atarax and instead change to the Benadryl and she verbalized understanding and will relay this message to thepatient. She did state he started Benadryl last night and can already feel relief with starting thisnew prescription. She will have patient call if he has any further questions. Telephone Encounter - Katelin Galvez L.P.N. - 02/15/2018 3:56 PM CDT Patient seen today by Dr. Nagy. After patient left the clinic it was identified that the medication Hydroxyzine prescribed today for itching interacted with a medication prescribed by his primary physician. Dr. Nagy wanted the patient to instead take Benadryl BID. I attempted to reach the patient at [phone] and [phone] with no answer and was unable to leave a message for each. Nurses will continue to attempt to reach the patient. documented in this encounter Plan of Treatment Not on filedocumented as of this encounter Visit Diagnoses Not on filedocumented in this encounter
[2022-04-03 17:33] LABS: Chloride* 96 mmol/L (96-114); Potassium* 4.7 mmol/L (3.6-5.1); Sodium* 130 mmol/L (135-149)
[2022-04-03 17:35] LABS: Estimated Glomerular Filt Rate 84 ml/min
[2022-04-03 17:36] LABS: Blood Urea Nitrogen* 18 mg/dL (7-30); Carbon Dioxide* 26 mmol/L (20-32); Glucose* 93 mg/dL (60-115)
[2022-04-03 17:37] LABS: Calcium* 8.9 mg/dL (8.4-10.6)
[2022-04-03 18:10] LABS: SARS PCR* Negative SARS-CoV-2 (Negative)
== END 2022-04-03 14:23 | disposition home or self-care (01) ==
PROVIDERS: Nurse Practitioner Family; PCP Family Medicine; Visit Provider Surgery
DX: Z01.818 Encounter for other preprocedural examination (principal); K42.9 Umbilical hernia without obstruction or gangrene; Z20.822 Contact with and (suspected) exposure to COVID-19
CPT/HCPCS: 80048; 87635

== ENCOUNTER 2022-04-07 07:39 | Day surgery (SDC) | payer MEDICARE, BC, SELFPAY ==
[2022-04-07] VITALS (12 sets, daily range): BP systolic 138–169; BP diastolic 76–93; PULSE 54–65; RESP 12–16; TEMP 36.2–36.6; O2SAT 88–97; BMI 36.3
[2022-04-07] MEDS: LACTATED RINGERS 1000 ML 1,000 ML 35 ML IV (08:30)
[2022-04-07] MEDS: SODIUM CHLORIDE 0.9 % (FLUSH) 10 ML SYRINGE IVF (08:42)
[2022-04-07] MEDS: ETHYL CHLORIDE 1 APPLICATION 1 APPLIC TOPICAL (08:43)
--- NOTE | 2022-04-07 10:15 | W.ANESCHARGE ---
Anesthesia Charges Start Date/Time Anesthesia Start Date: 04/07/22 Anesthesia Start Time: 09:47 Stop Date/Time Anesthesia Stop Date: 04/07/22 Anesthesia Stop Time: 10:49 Summary Emergency: No
[2022-04-07] MEDS: BUPIVACAINE 0.25% 30 ML INJECTION (10:29)
--- NOTE | 2022-04-07 10:42 | PM.GSPRC ---
Operative Note Date of procedure: 04/07/22 Type of Procedure: Open umbilical hernia repair with mesh Procedure Description: After discussing the risks and benefits of the procedure, the patient signed informed consent.? The operative site was marked and the patient was brought to the operating room and placed on the operating table in supine position.? Care was taken to pad the patient's pressure points.?? The patient was then intubated by anesthesia.?? The operative site was then prepped and draped in the usual sterile fashion.? A time-out was then performed. Local anesthetic was injected into the fascia, skin and subcutaneous tissues. A curvilinear incision was just below the umbilicus. Dissection was carried down into the subcutaneous tissue using cautery. The hernia sac was encountered and care was taken to not enter it. Dissection was taken down to the fascia, and the umbilical stalk was carefully dissected off of the hernia sac. Once the hernia was dissected out circumferentially, the fascia was grasped with a Vannesa. The hernia appeared to be containing preperitoneal fat and it was not able to be reduced. I carefully dissected the attachments from the herniated fat to the fascia circumferentially once this was done, with gentle pressure, piece by piece I was able to reduce the fat. The fascial edges were then cleared circumferentially. The hernia was 2 cm in size and so the decision was made to use a piece of mesh. A preperitoneal pocket was created using a combination of blunt dissection and cautery. Hemostasis appeared adequate. Once the posterior fascia was clear, a piece of medium Ventralex ST hernia mesh was placed in the preperitoneal space with care to ensure that it laid flat. This was secured into place using 2 0 PDS interrupted sutures. The tails were then trimmed and the fascial opening was closed 0 Nurolon in a vest over pants fashion. The umbilicus was reapproximated to the fascia. The skin was then closed with running absorbable suture. A sterile dressing was then applied. ? The patient was then woken and transported to the recovery area in stable condition. ? The patient tolerated the procedure well. Findings: 2 cm umbilical hernia containing incarcerated preperitoneal fat. Anesthesia: GETA Surgeon: Salena Strauss MD Estimated blood loss (mL): 5 Condition: stable Disposition: PACU
--- NOTE | 2022-04-07 10:56 | W.ANESCHARGE ---
Anesthesia Charges Start Date/Time Anesthesia Start Date: 04/07/22 Anesthesia Start Time: 09:47 Stop Date/Time Anesthesia Stop Date: 04/07/22 Anesthesia Stop Time: 10:49 Summary Emergency: No
[2022-04-07] MEDS: fentaNYL 100 MCG/2 ML inj 50 MCG IVP (11:12)
[2022-04-07] MEDS: HYDROCODONE-ACETAMIN 5-325 MG 1 TAB PO (11:40)
== END 2022-04-07 12:35 | disposition home or self-care (01) ==
PROVIDERS: PCP Family Medicine; Visit Provider Surgery
PROC: (CPT 49587; principal; 2022-04-07 09:00)
DX: K42.0 Umbilical hernia with obstruction, without gangrene (principal)
CPT/HCPCS: 49587; 00830; 00832; A4467; A9270; C1781; J0330; J1100; J1885; J2405; J2704; J3010; J3490; J7120

== ENCOUNTER 2022-07-09 08:32 | Outpatient (CLI) | payer MEDICARE, BC, SELFPAY ==
[2022-07-09 13:36] LABS: HDL Cholesterol* 55 mg/dL (>=40)
[2022-07-09 15:19] LABS: Cholesterol* 238 mg/dL (90-199); LDL Cholesterol Calculated 163 mg/dL (<100)
[2022-07-09 15:22] LABS: Triglycerides* 100 mg/dL (40-149)
== END 2022-07-09 08:33 | disposition home or self-care (01) ==
PROVIDERS: PCP Family Medicine; Visit Provider Family Medicine
DX: Z00.00 Encounter for general adult medical examination without abnormal findings (principal); Z13.29 Encounter for screening for other suspected endocrine disorder; Z13.6 Encounter for screening for cardiovascular disorders; I10 Essential (primary) hypertension
CPT/HCPCS: 80061; 84443

== ENCOUNTER 2022-08-29 07:20 | Outpatient (CLI) | payer MEDICARE, BC, SELFPAY | END 2022-08-29 07:21 | disposition home or self-care (01) | PROVIDERS: PCP Family Medicine; Visit Provider Surgery | DX: Z12.11 Encounter for screening for malignant neoplasm of colon (principal); K57.30 Diverticulosis of large intestine without perforation or abscess without bleeding; Z86.010 Personal history of colon polyps | CPT/HCPCS: 45378; 99153; J2250; J3010 ==

== ENCOUNTER 2023-08-05 08:26 | Outpatient (CLI) | payer MEDICARE, BC, SELFPAY ==
--- OUTSIDE RECORDS SUMMARY | 2023-08-05 08:30 | XMS_ITS | Referral Summary ---
Author Name Unknown Organization [facility] Address [address] [place] [address] Care Team Providers Care Rv Servicer Name Role Phone Unavailable Primary Care Provider Unavailabl e Source Comments Patient records contain information from all sites at [facility]. For routine questions regarding patient records, call [phone] during business hours, M-F 8:00 AM - 5:00 PM Central Time. Record requests for emergency care only can be directed to [phone] at any time.[facility] Encounters Date Type Department Care Team Description 06/25/2023 Refill Department of Dermatology in [address] [phone] Tony Nagy M.D. Med Refill from Last 3 Months Allergies No known active allergies Medications Medication Sig Dispensed Refills Start Date End Date Status citalopram (CeleXA) 20 mg tablet 0 11/21/2017 Active lisinopril (PRINIVIL,ZESTRIL) 20 mg tablet 0 11/16/2017 Active omeprazole (PriLOSEC) 20 mg capsule 0 11/21/2017 Active predniSONE (DELTASONE) 10 mg tablet 0 08/25/2017 Active famotidine (PEPCID) 20 mg tablet Take 1 mg by mouth as needed. 0 01/24/2009 Active mometasone (ELOCON) 0.1 % cream Apply 1 application topically daily. Apply sparingly to rash on trunk and extremities daily for 1-2 weeks at a time. 45 g 0 11/24/2017 Active mometasone (ELOCON) 0.1 % cream Apply sparingly to involved areas of rash on trunk and extremities once daily for 2 weeks at a time. 45 g 1 03/16/2018 Active BANOPHEN 25 mg capsule TAKE ONE CAPSULE BY MOUTH TWICE A DAY NEEDED FOR ITCHING 180 capsule 1 06/14/2018 Active betamethasone dipropionate (DIPROLENE) 0.05 % cream APPLY SPARINGLY TO INVOLVED AREAS ON TRUNK AND EXTREMITIES TWICE DAILY FOR 2 WEEKS, THEN STOP 45 g 1 07/16/2018 Active mometasone (ELOCON) 0.1 % ointment APPLY SPARINGLY TO INVOLVED AREAS OF DERMATITIS ONCE DAILY FOR 2 WEEKS AT A TIME, THEN STOP 45 g 0 05/30/2019 Active hydrOXYzine (VISTARIL) 25 mg capsule Take 25 mg by mouth daily as needed. 0 07/27/2020 Active sildenafiL (VIAGRA) 100 mg tablet Take 100 mg by mouth as needed. 0 08/27/2020 Active mometasone (ELOCON) 0.1 % ointment APPLY SPARINGLY TO INVOLVED RASH ON TRUNK AND EXTREMITIES ONCE DAILY FOR 1 WEEK. STOP FOR 1 OR 2 WEEKS, RESUME IF NEEDED 45 g 1 01/01/2021 Active mometasone (ELOCON) 0.1 % ointment Apply sparingly to rash on trunk and extremities once daily for 1 week then stop for at least 1 week before resuming if needed. 45 g 1 05/13/2021 Active mometasone (ELOCON) 0.1 % ointment Apply sparingly to rash on trunk and extremities once daily for 1 week, then stop for at least 1 week, resume if needed. 45 g 1 09/06/2021 Active GaviLyte-G 236-22.74-6.74 -5.86 gram solution 0 07/18/2022 Activ e rosuvastatin (CRESTOR) 5 mg tablet 0 07/13/2022 Active mometasone (ELOCON) 0.1 % ointment APPLY TOPICALLY SPARINGLY TO RASH ON TRUNK AND EXTREMITIES ONCE DAILY FOR 1 WEEK, THEN STOP FOR AT LEAST 1 WEEK. MAY RESUME IF NEEDED 45 g 0 04/09/2023 Active mometasone (ELOCON) 0.1 % ointment Apply topically sparingly to rash on trunk and extremities once daily for 1 week, stop for at least 1 week, may resume if needed 45 g 0 06/29/2023 Active Social History Tobacco Use Types Packs/Day Years Used Date Smoking Tobacco: Former Cigarettes 0 Smokeless Tobacco: Never Tobacco Cessation:Counseling Given: Not Answered Comments:1-2 cigarettes only periodically Nutrition Answer Date Recorded Nutrition: EVOO Fat Source Unknown 09/03 Nutrition: Servings of Fruits/Vegetables per Day Not on file 09/03/2020 Dental Answer Date Recorded Dental: Regular Dentist Unknown 09/04/19 21 Sex and Gender Information Value Date Recorded Sex Assigned at Not on file Gender Identity Not on file Sexual Orientation Not on file Plan of Treatment Not on file Medical Devices Implanted Type Area Safety Deposit Supervisor Device Identifier Shelf Expiration Date Model / Serial / Lot Mesh Or Patch Mesh or Patch Abdomen
--- OUTSIDE RECORDS SUMMARY | 2023-08-05 08:30 | XMS_ITS | Encounter Summary ---
Author Name Unknown Organization [facility] Address [address] [place] [address] Care Team Providers Care Departmental Shipping Clerk Name Role Phone Unavailable Primary Care Provider Unavailabl e Reason for Visit * Reason Comments Med Refill Encounter Details Date Type Department Care Team (Late st Contact Info) Description 12/10/2022 Refill Department of Dermatology in [address] [phone] Tony Nagy M.D. [address] [place] [phone] Med Refill Social History Tobacco Use Types Packs/Day Years Used Date Smoking Tobacco: Former Cigarettes 0 Smokeless Tobacco: Never Comments:1-2 cigarettes only periodically Nutrition Answer Date Recorded Nutrition: EVOO Fat Source Unknown 09/03 Nutrition: Servings of Fruits/Vegetables per Day Not on file 09/03/2020 Dental Answer Date Recorded Dental: Regular Dentist Unknown 09/04/19 21 Sex and Gender Information Value Date Recorded Sex Assigned at Not on file Gender Identity Not on file Sexual Orientation Not on file documented as of this encounter Plan of Treatment Not on file documented as of this encounter Visit Diagnoses Not on filedocumented in this encounter
--- OUTSIDE RECORDS SUMMARY | 2023-08-05 08:30 | XMS_ITS ---
Author Name Unknown Organization [facility] Address [address] [place] [address] Care Team Providers Care Certified Ophthalmic Medical Technician Name Role Phone Unavailable Unavailable Unavailable Surgery Details Not on file Complications Check Surgery Details section. Procedure Estimated Blood Loss Check Surgery Details section. Procedure Findings Check Surgery Details section. Procedure Specimens Taken Check Surgery Details section.
--- OUTSIDE RECORDS SUMMARY | 2023-08-05 08:30 | XMS_ITS | Encounter Summary ---
Author Name Unknown Organization [facility] Address [address] [place] [address] Care Team Providers Care Welfare Case Worker Name Role Phone Unavailable Primary Care Provider Unavailabl e Reason for Visit * Reason Comments Med Refill Encounter Details Date Type Department Care Team (Late st Contact Info) Description 09/24/2022 Refill Department of Dermatology in [address] [phone] Tony Nagy M.D. [address] [place] [phone] Med Refill Social History Tobacco Use Types [...]
--- OUTSIDE RECORDS SUMMARY | 2023-08-05 08:30 | XMS_ITS | Encounter Summary ---
Author Name Unknown Organization [facility] Address [address] [place] [address] Care Team Providers Care Semiconductor Packages Platemaker Name Role Phone Unavailable Primary Care Provider Unavailabl e Reason for Visit * Reason Comments Med Refill Encounter Details Date Type Department Care Team (Late st Contact Info) Description 06/25/2023 Refill Department of Dermatology in [address] [phone] Tony Nagy M.D. [address] [place] [phone] Med Refill Social History Tobacco Use Types [...]
--- OUTSIDE RECORDS SUMMARY | 2023-08-05 08:30 | XMS_ITS | Encounter Summary ---
Author Name Unknown Organization [facility] Address [address] [place] [address] Care Team Providers Care Phone Engineer Name Role Phone Unavailable Primary Care Provider Unavailabl e Reason for Referral * Outpatient (Routine) - Closed Specialty Diagnoses / Procedures Referred By Heaven de la rosa Referred To Contact Dermatology Tony Nagy M.D. 200 [place] [address] [facility] Region Referral ID Status Reason Start Date Expiration Date Visits Re quested Visits Authorized [id number] Closed 03/16/2023 03/15/2026 1 1 Scheduling Instructions Please add to 03/24/23 at 0845 held slot for 15 minutes. Treatment of AK's. Reason for Visit * Reason Comments Dermatitis Skin Check * Appointment Request (Routine) - Closed Specialty Diagnoses / Procedures Referred By Contac t Referred To Contact Dermatology Referral ID Status Reason Start Date Expiration Date Visits Re quested Visits Authorized [id number] Closed 12/03/2022 12/03/2023 1 1 Encounter Details Date Type Department Care Team (Late st Contact Info) Description 03/16/2023 8:45 AM CDT Office Visit Department of Dermatology in [address] [phone] Tony Nagy M.D. [address] [place] [address] Nevi Multiple (Primary Dx); Keratosis Seborrheic; Dermatitis Discharge Disposition: Home or Self Care Social History Tobacco Use Types Packs/Day Years [...] documented as of this encounter Progress Notes * Tony Nagy M.D. - 03/16/2023 8:45 AM CDT SUBJECTIVE CHIEF COMPLAINT / REASON FOR VISIT Full skin cancer screening Dermatitis HISTORY OF PRESENT ILLNESS Eran Conner is a pleasant 67 y.o. male who presents for a recheck of dermatitis involving the arms . The patient was last seen by me in Dermatology clinic on 07/22/22. He denies a personal history of skin cancer. His sister has a history of melanoma and his mother has a history of basal cell carcinoma. He uses sunscreen. During our visit on 11/11/21, there was a persistent spot of dermatitis on both arms and calves, and occassionally spots on the elbow or back. He reported using the mometasone ointment twice daily for the first day when flaring, and then applied once daily for 3-5 days before he stopped. asked him tocontinue applying mometasone ointment as spot treatments to involved areas once daily for one week at a time. For itching, I recommended applying Sarna lotion to involved areas 1- 2 times daily. He could also use Vanicream twice daily for moisturizing. Today the patient states that his dermatitis is the best it has ever been and he gets occasional lesions that he treats once daily for a few days at a time and it resolves. He reports that it eventually recurs and he treats it for another few days. MEDICAL HISTORY Negative for skin cancer FAMILY HISTORY Melanoma in sister Basal cell carcinoma in mother OBJECTIVE PHYSICAL EXAMINATION General: Awake, alert, in no acute distress, and with appropriate affect. Eyes: No scleral injection or icterus. No eyelid abnormalities. Lymph: No lower extremity edema. Skin: I have examined the scalp, face, neck, chest, abdomen, back, bilateral upper extremities, andbilateral lower extremities. Examination today reveals actinic keratoses, including 5 right cheek, 3 right forehead, 2 left forehead and 6 left cheek. Examination of the face, trunk and extremities reveals multiple benign-appearing nevi, lentigines and seborrheic keratoses. Examination of the right lower ingram reveals some mild resolving dermatitis. Examination of the left and right forearm reveals some mild excoriated dermatitis. Examination today reveals no suspicious lesions for skin cancer. ASSESSMENT / PLAN #1 Right cheek, right forehead, left forehead and left cheek: Actinic keratosis x 16 Given the precancerous nature of this lesion(s), treatment is medically indicated. After discussionof the risks, benefits and alternatives to treatment with cryotherapy, informed consent was obtained. Patient not treated today as company delivering liquid nitrogen did not come. I discussed with the patient that he will not be charged a visit charge at his return visit and will only be charged for the treatment at that time. He understands and is in agreement with this plan. Follow-up in 1-2 weeks for treatment of actinic keratosis #2 Left and right forearms and right lower ingram: Mild dermatitis, improved I Discussed with the patient that his dermatitis has continued to improve. I recommend he apply mometasone cream twice daily to the affected area for up to one week at a time. He understands and is in agreement with this plan. He reports that the dermatitis resolves prior to one week of applications. #3 Face, trunk and extremities: Multiple nevi and lentigines The ABCDE criteria for melanoma was reviewed with the patient. None of the patient's nevi reach theclinical threshold for biopsy. I recommend continued sun protection, self-skin examinations, and observation. Should any of the patient's nevi change in size, color, texture, or shape or develop symptoms such as itching or bleeding, I recommend an immediate return visit for reassessment. #4 Face, trunk and extremities: Seborrheic keratosis The benign nature of the skin lesion(s) was discussed with the patient. No treatment is required. Irecommend continued observation. Should this lesion change in size, color, texture, or shape or develop symptoms such as itching or bleeding, I recommend an immediate return visit for reassessment. PATIENT EDUCATION: Ready to learn. No apparent learning barriers were identified. Learning preferences include listening. Explained diagnosis and treatment plan; patient/guardian of patient expressed understanding of the content. By signing my name below, I, Vonda Mills, attest that this documentation has been prepared underthe direction and in the presence of Tony Nagy M.D. Electronically Signed: julia Velasquez. 03/16/2023. 9:05 AM CDT. I, Tony Nagy M.D., personally performed the services described in this documentation. All medical record entries made by the scribe were at my direction and in my presence. I have reviewed the chart and discharge instructions (if applicable) and agree that the record reflects my personal performance and is accurate and complete. Tony Nagy M.D Scribed for Tony Nagy M.D. by Vonda Mills, on 03/16/2023, 9:29 AM CDT. documented in this encounter Plan of Treatment Scheduled Referrals Name Type Priority Associated Diagnoses Order Schedule Dermatology office visit (clinic) Outpatient Referral Routine Expected: 2023 (Approximate), Expires: 06/15/2024 documented as of this encounter Visit Diagnoses Diagnosis Nevi Multiple- Primary Keratosis Seborrheic Dermatitis documented in this encounter
--- OUTSIDE RECORDS SUMMARY | 2023-08-05 08:30 | XMS_ITS | Encounter Summary ---
Author Name Unknown Organization [facility] Address [address] [place] [address] Care Team Providers Care Land Appraiser Name Role Phone Unavailable Primary Care Provider Unavailabl e Reason for Visit * Reason Comments Actinic Keratosis * Outpatient (Routine) - Closed Specialty Diagnoses / Procedures Referred By Heaven de la rosa Referred To Contact Dermatology Tony Nagy M.D. [address] [place] [phone] [facility] Region Referral ID Status Reason Start Date Expiration Date Visits Re quested Visits Authorized [id number] Closed 03/16/2023 03/15/2026 1 1 Encounter Details Date Type Department Care Team (Late st Contact Info) Description 2023 8:45 AM CDT Office Visit Department of Dermatology in [address] [phone] Tony Nagy M.D. [address] [place] [phone] Keratosis Actinic (Primary Dx) Discharge Disposition: Home or Self Care Social [...] Progress Notes * Tony Nagy M.D. - 2023 8:45 AM CDT SUBJECTIVE CHIEF COMPLAINT / REASON FOR VISIT Actinic keratoses HISTORY OF PRESENT ILLNESS Eran Conner is a pleasant 68 y.o. male who presents for treatment of actinic keratoses involving the face. The patient was last seen by me in Dermatology clinic on 03/16/23, at which time we noted these lesions but were unable to treat them as there was no liquid nitrogen available. He denies a personal history of skin cancer. His sister has a history of melanoma and his mother has a history of basal cell carcinoma. He uses sunscreen. He denies any new or changing lesions today. MEDICAL HISTORY Negative for skin cancer FAMILY HISTORY Melanoma in sister Basal cell carcinoma in mother OBJECTIVE PHYSICAL EXAMINATION General: Awake, alert, in no acute distress, and with appropriate affect. Skin: Limited skin exam done today. Examination today reveals actinic keratoses, including 3 left ear helix, 7 left cheek, 2 left upperforehead and 2 right upper forehead, 5 right cheek, 2 right ear helix, 3 distal nasal bridge, 1 nasal tip and 1 right nasal ala. ASSESSMENT / PLAN #1 Left ear helix, right ear helix and face: Actinic keratosis x 26 Given the precancerous nature of this lesion(s), treatment is medically indicated. After discussionof the risks, benefits and alternatives to treatment with cryotherapy, informed consent was obtained. We treated a total of 26 lesion(s) with two 10-second freeze-thaw cycles of liquid nitrogen cryotherapy. The patient tolerated the procedure well. Aftercare instructions were provided in written and verbal form to the patient. Should any of these lesions recur, the patient should return for biopsy or further evaluation. Follow up in 1-2 months for recheck if these areas do not complete resolve. PATIENT EDUCATION: Ready to learn. No apparent learning barriers were identified. Learning preferences include listening. Explained diagnosis and treatment plan; patient/guardian of patient expressed understanding of the content. By signing my name below, Vonda Elliott, attest that this documentation has been prepared underthe direction and in the presence of Tony Nagy M.D. Electronically Signed: julia Velasquez. 2023. 8:39 AM CDT. I, Tony Nagy M.D., personally performed the services described in this documentation. All medical record entries made by the scribe were at my direction and in my presence. I have reviewed the chart and discharge instructions (if applicable) and agree that the record reflects my personal performance and is accurate and complete. Tony Nagy M.D. Scribed for Tony Nagy M.D. by Vonda Mills on 2023, 8:48 AM CDT. documented in this encounter Plan of Treatment Not on file documented as of this encounter Visit Diagnoses Diagnosis Keratosis Actinic- Primary documented in this encounter
--- OUTSIDE RECORDS SUMMARY | 2023-08-05 08:30 | XMS_ITS | Clinical Summary ---
Author Name Unknown Organization [facility] Address [place], [place] [address] Care Team Providers Care Digital Asset Coordinator Name Role Phone [facility] Primary Care Prov ider Allergies No known active allergies Medications Medication Sig Dispensed Refills Start Date End Date Status citalopram (CELEXA) 20 mg tablet 0 11/21/2017 Active lisinopril (PRINIVIL; ZESTRIL) 20 mg tablet 0 11/16/2017 Act justina mometasone 0.1% (ELOCON 0.1% OINTMENT) 0.1 % ointment 0 01/26/2019 Active omeprazole (PRILOSEC) 20 mg Delayed-Release capsule 0 11/21/2017 Active mometasone 0.1% (ELOCON 0.1% CREAM) 0.1 % cream Apply topically to rash once daily up to 2 weeks as needed for rash 0 05/11/2019 Active Active Problems Problem Noted Date Diagnosed Date Ulcer of esophagus without bleeding 10/07/2017 Overview: EGD 09/2017 esophageal ulcer, repeat EGD in 3 months Bilateral bunions 09/01/2012 Back pain 09/01/2012 Lipid screening 05/16/2010 LVH (left ventricular hypertrophy) 05/16/2010 Overview: Noted on EKG 01/2009 Prostate cancer screening 01/29/2009 Prediabetes 09/20/2007 Overview: FBS 109 01/11 FBS 113 06/2010 FBS 122 08/2012 Special screening for malignant neoplasms, colon 09/06/2007 Overview: (2007 or 2008) Biopsy of a polyp with no significant tissue on pathology 10 year follow up recommended Unspecified hearing loss 09/06/2007 Overview: Noise exposure Right > left Umbilical hernia without mention of obstruction or gangrene 09/06/2007 Overview: Asymptomatic Unspecified essential hypertension 09/06/2007 Obesity, unspecified Resolved Problems Problem Noted Date Diagnosed Date Resolved Date Medial meniscus tear 01/24/2009 010 Immunizations Name Administration Dates Next Due Influenza, IIV3 (Age >=3 years) 05/28/2007 Td (Age >=7 Years) 10/02/1999 Tdap 01/24/2009 Family History Medical History Relation Name Comments Hypertension Paternal Uncle Relation Name Status Comments Brother 1 Alive Brother 2 (Age 3 months) natali enital heart defect Daughter Shakila Alive 1996 Father (Age 50) suicide Mother Alive Paternal Uncle Sister 1 Alive Sister 2 Alive Sister 3 Alive Son Gui Alive 1994 Social History Tobacco Use Types Packs/Day Years Used Date Smoking Tobacco: Never Smokeless Tobacco: Never Tobacco Cessation:Counseling Given: Yes Alcohol Use Standard Drinks/Week Comments Yes 0 (1 standard drink = 0.6 oz pur e alcohol) Sex and Gender Information Value Date Recorded Sex Assigned at Not on file Gender Identity Not on file Sexual Orientation Not on file Obstetrics History Last Filed Vital Signs Vital Sign Reading Time Taken Comments Blood Pressure 124/60 05/17/2019 10:06 AM ABATTOIR MANAGER Pulse 76 05/17/2019 10:06 AM ABATTOIR MANAGER Temperature - - Respiratory Rate - - Oxygen Saturation - - Inhaled Oxygen Concentration - - Weight 90.7 kg (200 lb) 05/17/2019 10:06 AM ABATTOIR MANAGER Height 172.1 cm (5' 7.75) 05/17/2019 10:06 AM C Body Mass Index 30.63 05/17/2019 10:06 AM ABATTOIR MANAGER Plan of Treatment Health Maintenance Due Date Last Done Comments COVID-19 vaccine series (#1) 1957 Depression screening for age 12+ 1969 Hepatitis C screening for age 18-79 1975 Zoster (shingles) series for age 50+ (1 of 2) 2007 Lipids for age 45-75 06/26/2015 06/26/2010 Colonoscopy through age 75 10/03/2017 10/04/2007 Tetanus booster 01/24/2019 01/24/2009, 10/02/1999 BMI (ht and wt on same day) for age 18+ 05/17/2020 1 07/17/2018, 05/11/2019 Pneumococcal series for age 65+ (1 of 1 - PCV) 2022 Influenza for age 65+ 03/06/2023 05/28/2007 Tdap Completed 01/24/2009 Care Teams Digital Asset Coordinator Relationship Specialty Start Date End Date Clinic, [facility] [address] [place] [address] PCP - General 06/27/14
--- OUTSIDE RECORDS SUMMARY | 2023-08-05 08:30 | XMS_ITS | Encounter Summary ---
Author Name Unknown Organization [facility] Address [address] [place] [address] Care Team Providers Care Logging Tractor Operator Name Role Phone Unavailable Primary Care Provider Unavailabl e Reason for Visit * Reason Comments Med Refill Encounter Details Date Type Department Care Team (Late st Contact Info) Description 04/09/2023 Refill Department of Dermatology in [address] [phone] Tony Nagy M.D. [address] [place] [phone] Med Refill Social History Tobacco Use Types [...]
--- OUTSIDE RECORDS SUMMARY | 2023-08-05 08:30 | XMS_ITS | Clinical Summary ---
Author Name Unknown Organization [facility] Address [address] [place] [address] Care Team Providers Care Engineering And Scientific Programmer Name Role Phone Unavailable Primary Care Provider Unavailabl e Source Comments Patient records contain information from all sites at [facility]. For routine questions regarding patient records, call [phone] during business hours, M-F 8:00 AM - 5:00 PM Central Time. Record requests for emergency care only can be directed to [phone] at any time.[facility] Allergies No known active allergies Medications Medication [...] if needed 45 g 0 06/29/2023 Active Encounters Date Type Department Care Team Description 06/25/2023 Refill Department of Dermatology in [address] [phone] Tony Nagy M.D. Med Refill from Last 3 Months Family History Medical History Relation Name Comments Basal cell carcinoma Mother Melanoma Sister arm negative ly mph nodes Relation Name Status Comments Mother Sister Social [...] Orientation Not on file Plan of Treatment Health Maintenance Due Date Last Done Comments Abdominal Aortic Aneurysm (A AA) Screen 1957 CT Colonography 1957 Cologuard 1957 Colonoscopy 1957 Colorectal Cancer Screening 1957 Creatinine Level (Kidney Fun ction Test) 1957 FIT 1957 Fasting Glucose for Diabetes Screening 1957 Hepatitis C Screening 1957 Potassium Level 1957 Sodium Level 1957 Depression Screening (Annual PHQ-2) 07/06/2023 Fall Risk Screen (Annual) 07/06/2023 Pneumococcal vaccine (65+ ye ars) (2 of 2 - PCV) 07/09/2023 07/09/2022 DTaP,Tdap,and Td Vaccines (3 - Td or Tdap) 08/16/2028 08/16/2018, 01/24/2009 Zoster Vaccines Completed 06/27/2021, 03/25/2021 COVID-19 Vaccine Completed 05/30/2023, , 06/03/2021, Additional history exists Influenza Vaccine Completed 05/30/2023, , 03/21/2021, Additional history exists Medical Devices Implanted Type Area Oyster Worker Device Identifier Shelf Expiration Date Model / Serial / Lot Mesh Or Patch Mesh or Patch Abdomen
--- OUTSIDE RECORDS SUMMARY | 2023-08-05 08:31 | XMS_ITS | Encounter Summary ---
Author Name Unknown Organization [facility] Address [address] [place] [address] Care Team Providers Care Cellar Packer Name Role Phone Unavailable Primary Care Provider Unavailabl e Reason for Visit * Reason Comments Med Refill Encounter Details Date Type Department Care Team (Late st Contact Info) Description 08/05/2022 Refill Department of Dermatology in [address] [phone] Tony Nagy M.D. [address] [place] [phone] Med Refill Social History Tobacco Use Types [...]
== END 2023-08-05 08:27 | disposition home or self-care (01) ==
PROVIDERS: PCP Family Medicine; Visit Provider Family Medicine
DX: E78.2 Mixed hyperlipidemia (principal); I10 Essential (primary) hypertension; Z12.5 Encounter for screening for malignant neoplasm of prostate
CPT/HCPCS: 80048; 80061; G0103

== ENCOUNTER 2023-09-01 06:32 | Outpatient (CLI) | payer MEDICARE, BC, SELFPAY ==
--- NOTE | 2023-09-01 07:53 | W.ANESCHARGE ---
Anesthesia Charges Start Date/Time Anesthesia Start Date: 09/01/23 Anesthesia Start Time: 07:24 Stop Date/Time Anesthesia Stop Date: 09/01/23 Anesthesia Stop Time: 08:08
--- NOTE | 2023-09-01 08:12 | W.ANESCHARGE ---
Anesthesia Charges Start Date/Time Anesthesia Start Date: 09/01/23 Anesthesia Start Time: 07:24 Stop Date/Time Anesthesia Stop Date: 09/01/23 Anesthesia Stop Time: 08:08
== END 2023-09-01 06:33 | disposition home or self-care (01) ==
LOC: OP CLINIC 06:33
PROVIDERS: PCP Family Medicine; Visit Provider Surgery
DX: K63.5 Polyp of colon (principal); Z86.010 Personal history of colon polyps
CPT/HCPCS: 00811; 45385; 88305; J2704

== ENCOUNTER 2024-08-08 08:17 | Outpatient (CLI) | payer MEDICARE, BC, SELFPAY | END 2024-08-08 08:18 | disposition home or self-care (01) | PROVIDERS: PCP Family Medicine; Visit Provider Family Medicine | DX: I10 Essential (primary) hypertension (principal); E78.00 Pure hypercholesterolemia, unspecified | CPT/HCPCS: 80048; 80061 ==

== ENCOUNTER 2024-09-05 07:10 | Outpatient (CLI) | payer MEDICARE, BC, SELFPAY ==
--- NOTE | 2024-09-05 09:00 | W.ANESCHARGE ---
Anesthesia Charges Start Date/Time Anesthesia Start Date: 09/05/24 Anesthesia Start Time: 08:04 Stop Date/Time Anesthesia Stop Date: 09/05/24 Anesthesia Stop Time: 08:56 Coding CPT Codes CPT Codes: ANES LWR INTST NDSC NOS - 61453 ([id number]) P3 - PATIENT W/SEVERE SYS DISEASE, QK - BRACELET AND BROOCH MAKER 2-4 CNCRNT ANES PROC, QX - BRICK CHIMNEY SUPERVISOR SVC W/ MD MED DIRECTION
--- NOTE | 2024-09-05 09:03 | W.ANESCHARGE ---
Anesthesia Charges Start Date/Time Anesthesia Start Date: 09/05/24 Anesthesia Start Time: 08:04 Stop Date/Time Anesthesia Stop Date: 09/05/24 Anesthesia Stop Time: 08:56 Coding CPT Codes CPT Codes: ANES LWR INTST NDSC NOS - 47669 ([id number]) QX - LAY MIDWIFE SVC W/ MD MED DIRECTION, QK - SMOKE JUMPER SUPERVISOR 2-4 CNCRNT ANES PROC, P3 - PATIENT W/SEVERE SYS DISEASE
== END 2024-09-05 07:11 | disposition home or self-care (01) ==
PROVIDERS: PCP Family Medicine; Visit Provider Surgery
DX: Z12.11 Encounter for screening for malignant neoplasm of colon (principal); K63.89 Other specified diseases of intestine; Z86.0100 Personal history of colon polyps, unspecified
CPT/HCPCS: 00811; 45380; 88305; J2704

== ENCOUNTER 2024-10-10 14:18 | Outpatient (CLI) | payer MEDICARE, BC, SELFPAY ==
--- NOTE | 2024-10-18 12:15 | W.PM.SLEEP ---
Sleep Study Details Details Interpreting Provider: Ebonie Date of Sleep Study: 10/10/24 Sleep Study Details: STUDY TYPE:? Home unattended ? BMI:? 36.8 ORDERING PROVIDER:? Efraín INDICATION:? Concern about sleep apnea ? SLEEP SUMMARY:? 450 minutes monitored RESPIRATORY SUMMARY:? AHI 54.9 per CMS guideline, 63.9 per rule 1A There were 110 central apneas, 101 obstructive apneas and 268 hypopneas Low oxygen 70 45.8% of study oxygen less than 90% Snoring 99.3% PERIODIC LIMB MOVEMENTS OF SLEEP:? Not recorded CARDIAC:? Range 47-1 awake, mean 55.6 beats per minute IMPRESSION:? 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
== END 2024-10-10 14:19 | disposition home or self-care (01) ==
PROVIDERS: PCP Family Medicine; Visit Provider Family Medicine
DX: G47.33 Obstructive sleep apnea (adult) (pediatric) (principal); G47.31 Primary central sleep apnea
CPT/HCPCS: 95806

== ENCOUNTER 2024-11-04 08:59 | Outpatient (CLI) | payer MEDICARE, BC, SELFPAY | END 2024-11-04 09:00 | disposition home or self-care (01) | LOC: RAD 09:00 | PROVIDERS: PCP Family Medicine; Visit Provider Family Medicine | DX: G47.33 Obstructive sleep apnea (adult) (pediatric) (principal); I51.7 Cardiomegaly; I10 Essential (primary) hypertension | CPT/HCPCS: 93306 ==

== ENCOUNTER 2024-11-13 20:13 | Outpatient (CLI) | payer MEDICARE, BC, SELFPAY ==
--- NOTE | 2024-11-22 12:11 | W.PM.SLEEP ---
Sleep Study Details Details Interpreting Provider: Ebonie Date of Sleep Study: 11/13/24 Sleep Study Details: STUDY TYPE:? Attended with CPAP titration ? BMI:? 36.9 ORDERING PROVIDER:? Ebonie INDICATION:? Previous positive study with 20% central apneas, 80% obstructive apneas ? SLEEP SUMMARY:? Total sleep time 304 minutes RESPIRATORY SUMMARY:? Mean oxygen awake 93 asleep 91 minimum 83. 5.5 minutes oxygen between 80 and 88% This was a titration study. The overall AHI for this study was 11.3 per CMS guideline. Patient was titrated to be EPAP 11 maximum pressure support 14 minimum pressure support 3 this decreased AHI to 11.4 per CMS guideline. This did demonstrate REM stage sleep in the nonsupine position. PERIODIC LIMB MOVEMENTS OF SLEEP:? Index 77.6, index with arousal 0.8 CARDIAC:? Awake 57, asleep 52 no arrhythmias noted IMPRESSION:? This was a relatively successful titration with ASV at pressure support 3-14 EPAP 11. RECOMMENDATION: Recommend patient be set up on an ASV at a pressure of 12 with pressure support minimum 3 maximum 14.
== END 2024-11-13 20:14 | disposition home or self-care (01) ==
LOC: SLEEP 20:14
PROVIDERS: PCP Family Medicine; Visit Provider Otolaryngology
DX: G47.30 Sleep apnea, unspecified (principal); G47.10 Hypersomnia, unspecified; R06.83 Snoring
CPT/HCPCS: 95811